=== PATIENT | male | born 1955 | race Caucasian/White ===

== ENCOUNTER 2024-04-14 16:52 | Emergency (ER) | payer BC, SELFPAY ==
[2024-04-14 16:59] VITALS: BP 165/85
[2024-04-14 17:14] LABS: % Basophils 0.5 % (0-2); % Eosinophils 1.9 % (0-6); % Immature Granulocytes 0.4 % (0-0.5); % Lymphocytes 28.3 % (20.5-51.1); % Monocytes 7.6 % (1.7-9.3); % Neutrophils 61.3 % (42.2-75.2); Absolute Eosinophils 0.1 10^3/uL (0-0.7); Absolute Lymphocytes 1.6 10^3/uL (1.2-3.4); Absolute Monocytes 0.4 10^3/uL (0.1-0.6); Absolute Neutrophils 3.5 10^3/uL (1.4-6.5); Hematocrit 38.5 % (39.0-52.0); Mean Corp Hgb Conc. 36.4 g/dL (33.0-37.0); Mean Corpuscular Hgb 30.4 pg (27.0-31.0); Mean Corpuscular Volume 83.7 fL (80.0-94.0); Mean Platelet Volume 9.8 fL (7.4-10.4); Nucleated Red Blood Cells % 0 % (-); Platelet Count 235 10^3/uL (130-400); White Blood Cell Count 5.7 10^3/uL (4.8-10.8)
[2024-04-14 17:29] LABS: ALT (SGPT) 36 U/L (0-50); AST (SGOT) 30 U/L (17-59); Albumin 4.5 g/dl (3.5-5.0); Alkaline Phosphatase 174 U/L (38-126); Blood Urea Nitrogen 18 mg/dl (9-20); Calcium 9.1 mg/dl (8.4-10.2); Carbon Dioxide 24 mmol/L (22-30); Chloride 99 mmol/L (98-107); Glucose 414 mg/dl (70-99); Potassium 4.1 mmol/L (3.5-5.1); Sodium 136 mmol/L (135-145); Total Bilirubin 0.8 mg/dl (0.2-1.3); Total Protein 7.4 g/dl (6.3-8.2); eGFR > 60.00
[2024-04-14 17:41] LABS: Troponin I < 0.012 ng/ml
--- NOTE | 2024-04-14 19:18 | ED.GENMED ---
History of Present Illness
General
Chief Complaint: Chest Pain
Source: patient
Exam Limitations: none
Time Seen by Provider: 04/14/24 19:17
Nursing documentation reviewed up to this point in time: agreed with
History of Present Illness
History of Present Illness:
68-year-old male with history of HLD, NIDDM, BPH presents for two episodes fleeting sharp right upper chest pain one at 7 a.m. and one at 10 a.m. Then felt pins and needles feeling in right palm and forearm for about 2 hours, that has subsided.
Was overnight at a wedding past 2 days, lots of eating 'junk food.' Drove about an hour home today, slept on couch, woke at 4:30 and had another 1-2 seconds of sharp right upper chest dyson. No SOB, sweating, n/v or weakness/lightheadedness.
Past History
Past History
ED Past Medical History: Hypercholesterolemia and NIDDM
Social History
Tobacco: Non-smoker
Living: with family
Employment: Employed
Review of Systems
Review of Systems
Allergies reviewed?: Yes
All Other Systems: ROS reviewed and negative except as documented in HPI and ROS
Constitutional: Denies fever
Respiratory: Denies trouble breathing
Cardiac: Reports chest pain; Denies diaphoresis, palpitations or syncope
ABD/GI: Denies abdominal pain, nausea, vomiting, diarrhea, constipated or anorexia
: Denies dysuria, frequency or difficulty voiding
Musculoskeletal: Reports no symptoms
Skin: Reports no symptoms
Neurological: Reports other (episode pins and needles feeling right palm and forearm earlier today, has resolved)
Endocrine: Denies polyuria or polydipsia
Phy Exam
Physical Exam
Physical Exam:
GENERAL: No acute distress. A&Ox3.
CONSTITUTIONAL: Afebrile.
EYES: clear, conjunctivae normal
ENMT: moist mucus membranes, Pharynx nl
RESPIRATORY: Regular respirations, nonlabored, lungs clear.
CARDIOVASCULAR: Regular rate and rhythm, no murmurs, no rubs.
GI: Soft, nontender, normal BS
MUSCULOSKELETAL: Moves with ease. Well perfused.
SKIN: Warm, dry, pink
PSYCH: Normal mood and affect. Well kept, interactive and appropriate
NEUROLOGIC: Awake, alert and oriented. No focal neurological deficits
Scores
Heart Score for Chest Pain Patients
STEMI patient?: Not applicable
Course
Orders/Labs/Results
Orders:
Orders
04/14/24 16:53
EKG [Electrocardiogram (*1)] Urgent
Reason for Study: Chest Pain
EKG- Treatment ONCE
04/14/24 17:06
CMP [Comprehensive Metabolic Panel] Urgent
Complete Blood Count/With Diff Urgent
Troponin I Urgent
04/14/24 19:32
CR Chest - 2 Views Urgent
Comment:
Reason For Exam: CP
04/14/24 19:36
METFORMIN HCl [Glucophage] 500 mg PO NOW STA
Abnormal Lab Results
04/14/24
17:06
RBC 4.60 L 10^6/uL
(4.70-6.10)
Hct 38.5 L %
(39.0-52.0)
Glucose 414 H mg/dl
(70-99)
Alkaline Phosphatase 174 H U/L
(38-126)
04/14/24 17:06
04/14/24 17:06
Vital Signs
Initial and Last Documented VS:
Initial Vital Signs
Temp Pulse Resp BP Pulse Ox
98 F 80 18 165/85 99
04/14/24 16:59 04/14/24 16:59 04/14/24 16:59 04/14/24 16:59 04/14/24 16:59
Last Documented Vital Signs
Temp Pulse Resp BP Pulse Ox
98 F 76 22 165/85 96
04/14/24 16:59 04/14/24 18:15 04/14/24 18:15 04/14/24 16:59 04/14/24 18:15
MDM/Problems Addressed
Differential Diagnosis Includes:
Type 2 diabetes
ACS, chest wall pain
MDM/Problems Addressed:
68-year-old male with history of HLD, NIDDM, BPH presents for two episodes fleeting sharp right upper chest pain one at 7 a.m. and one at 10 a.m. Then felt pins and needles feeling in right palm and forearm for about 2 hours, that has subsided.
Was overnight at a wedding past 2 days, lots of eating 'junk food.' Drove about an hour home today, slept on couch, woke at 4:30 and had another 1-2 seconds of sharp right upper chest dyson. No SOB, sweating, n/v or weakness/lightheadedness.
Middle aged male w h/o NIDDM was on Metformin 'years ago' asymptomatic, non gap hyperglycemia with BS 414.
No infectious processes, no recent steroids
Plan: restart Metformin and f/u with PCP
Cardiac workup is neg
CXR: NAD
Stable for discharge
Rx for Metformin sent to his pharmacy
*EKG
EKG Intrepretation Date: 04/14/24
Interpretation: normal
Heart Rate: 78
Rate: normal
Rhythm: sinus
[place]: normal axis
Interval: normal interval
QRS Pattern: normal QRS
Ischemia: no ischemia
*Critical Care Note
Total Time (30-74mins, 75-104mins- exclusive of procedures): Not Applicable
ED Attending Note
-
Portions of this chart may have been created with voice recognition software.� Occasional wrong word or��sound alike� substitutions may have occurred due to the inherent limitations of voice recognition software.
Discharge Plan
Departure
Patient Disposition: Home (Routine Discharge)
Date of Disposition: 04/14/24
Time of Disposition: 20:11
Patient with high blood pressure during this ER visit?: Yes
Condition: Good
Discharge Problem:
Type 2 diabetes mellitus, Atypical chest pain
Instructions: Type 2 diabetes, Diabetes and diet, Chest Pain CBC Follow Up
Prescriptions:
New
metformin 500 mg tablet
500 mg PO BID Qty: 60 0RF
No Action
epinephrine [EpiPen] 0.3 MG/0.3/SYRINGE auto-injector
0.3 mg IM PRN PRN (Reason: allergic reaction) Qty: 2 0RF
methylprednisolone [Medrol (Sanju)] 4 MG tablets,dose pack
4 tab PO . DIRECT Qty: 1 0RF
cephalexin 500 MG capsule
500 mg PO QID Qty: 28 0RF
Referrals:
Panda Arguelles MD [Family Provider] - Call in 1-3 days for appt
Activity Restrictions/Additional Instructions:
As we discussed, your cardiac workup shows nothing worrisome.
Someone from the cardiac group will call you early next week for a more thorough cardiac evaluation
Your blood sugar is 414. You need to restart your Metformin
I sent a prescription to your pharmacy for Metformin 500 mg twice daily
Make appointment with your primary doctor in 1-2 weeks to discuss you diabetes and inform you started Metformin, and to have your blood sugar re checked.
Interventions
Interventions:
*Risk Screen - Suicide Last Done: 04/14/24 16:59
*General Assessment Last Done: 04/14/24 16:59
*Neglect/Abuse Screening Last Done: 04/14/24 16:59
ED- Fall Risk Assessment Last Done: 04/14/24 20:41
*Nursing Disposition Last Done: 04/14/24 20:41
ED- Cardiac Assessment Last Done: 04/14/24 19:27
Discharge Date and Time
Discharge Date/Time: 04/14/24 20:41
Print Language: UKRAINIAN
[2024-04-14] MEDS: GLUCOPHAGE 500 MG PO (20:02)
== END 2024-04-14 20:41 | disposition home or self-care (01) ==
LOC: EMR 16:52
PROVIDERS: EMERGENCY PHYSICIAN Emergency Medicine; FAMILY PHYSICIAN Family Medicine
DX: R07.89 Other chest pain (principal); E11.65 Type 2 diabetes mellitus with hyperglycemia; R20.2 Paresthesia of skin; E78.00 Pure hypercholesterolemia, unspecified; N40.0 Benign prostatic hyperplasia without lower urinary tract symptoms; Z79.84 Long term (current) use of oral hypoglycemic drugs
CPT/HCPCS: 99283; 71046; 80053; 84484; 85025; 93005

== ENCOUNTER 2024-08-30 08:33 | Inpatient (IN) | payer BC, MEDICARE, SELFPAY ==
[2024-08-30] VITALS (82 sets, daily range): BP systolic 102–160; BP diastolic 48–100; BMI 29.6; BMI 30.6
--- NOTE | 2024-08-30 07:18 | ED.GENMED ---
History of Present Illness
General
Chief Complaint: Fainting Sensation
Source: patient
Exam Limitations: none
Time Seen by Provider: 08/30/24 07:15
History of Present Illness
History of Present Illness:
See MDM
Past History
Past History
ED Past Medical History: Hypercholesterolemia and NIDDM
Social History
Tobacco: Non-smoker
Living: with family
Employment: Employed
Phy Exam
Physical Exam
Physical Exam:
See MDM
Scores
NIH Stroke Score
Level of Consciousness: 0 - Alert
LOC Questions: 0-Answers both correctly
LOC Commands: 0-Performs both correctly
Best Horizontal Gaze: 2-Total gaze palsy
Visual Mota: 0=Normal, no visual loss
Facial Palsy: 0=Normal, symmetrical
Motor - Right Arm: 0=No drift 10 seconds
Motor - Left Arm: 0=No drift 10 seconds
Motor - Right Le-No drift 5 seconds
Motor - Left Le-No drift 5 seconds
Limb Ataxia: 0-Absent
Sensation: 0-Normal
Best Language: 0-No aphasia
Dysarthria: 0-Normal
Extinction and Inattention: 0-No abnormality
Total Score:: 2
Course
Orders/Labs/Results
Orders:
Orders
08/30/24 07:15
Electrocardiogram (*1) Stat
Reason for Study: Other
Other Reason for Exam: neuro symptoms
CT HEAD STROKE ALERT W/o Cont Urgent
Comment:
Reason For Exam: dizzy, unable to move R eye medially
CT HEAD/NECK ANG STROKE ALERT Urgent
Comment:
Reason For Exam: dizzy, unable to move R eye medially
Cardiac Monitoring- Treatment ONCE
EKG- Treatment ONCE
08/30/24 07:44
Complete Blood Count/With Diff Urgent
Comprehensive Metabolic Panel Urgent
PTT Urgent
Prothrombin Time Urgent
Troponin I Urgent
08/30/24 07:46
Tenecteplase [Tnkase] 25 mg Syringe [Syringe Non-Pump] 0 ml IV NOW
Provider explained risk/benefits to patient &/or caregiver?: Yes
Blood pressure: 129/73
08/30/24 07:55
Consult Neurology [NEUROLOGY CONSULT] Stat
Consulting Provider: Richard Patel
Was physician already notified: Yes
08/30/24 08:02
Electrocardiogram (*1) Routine
Reason for Study: TIA/Stroke
Code Status As Directed
Resuscitation Status: Full Code
Case Management Consult Once
Case Management Consult: Discharge Planning
DIETARY CONSULT Routine
Reason for Consult: stroke/TIA
Steam Shovel Operating Engineer Consult Routine
Consulting Provider: Terrell Root
Was physician already notified: Yes
Reason for consult: cva
Head Of Integrated Media Urgent
MR Brain Without Contrast Routine
Comment: complete 24 hrs post tenecteplase admin &/or IAT
Reason For Exam: poss stroke, status post tenecteplase &/or IAT,
Recent pill cam endoscopy?: No
Acetaminophen [Tylenol] 650 mg PO Q4HPRN PRN
Hemetest Stools As Directed
Comment: hemoccult all stools if patient received tenecteplase
NIH Stroke Scale As Directed
Directions: Other
Comment: For Tenecteplase: NIH stroke Scale to be completed prior to administration, then every 1 hour for
2 hours, then every shift and with change in condition and/or mental status.
For IAT: NIH stroke scale to be completed at hand off, every 1 hour for 2 hours on arrival to ICU;
then every shift and with change in condition and/or mental status.
Neurological Checks As Directed
Frequency: Per unit guidelines
Additional Instructions:: after start of thrombolytic therapy and/or IAT:
q15min x 2 hrs, q30min x 6 hrs, q1h x 16 hrs, q4h x 24 hrs, then every shift and
with any changes.
Notify MD As Directed
Notify physician if: - Any deterioration, change in neurological status, development of severe headache,
nausea and vomiting, or with any signs of bleeding. (see guidelines for suspected
intracerebral hemorrhage).
- If intracranial hemorrhage is suspected or confirmed by imaging, anticipate need for
osmotic diuretic to maintain euvolemia.
Notify MD As Directed
Notify physician if: Glucose less than 70 or greater than 180.
Anticipate corrective insulin orders.
Notify MD As Directed
Notify physician if: unable to obtain MRI of head within 22-32 hours of tenecteplase administration and/or IAT
- contact Neurology for order for CT of head without contrast
Patient Education As Directed
Type: Stroke education packet
Comment: provide to patient and family
Pneumatic Compression Sleeves As Directed
Type: Knee high
Precautions As Directed
Type of Precautions: Bleeding
Comment: post Bleeding Precaution sign at bedside (if patient received tenecteplase)
Swallow Screening CVA/TIA ONLY As Directed
Comment: NPO until swallow screening completed
If patient FAILS swallow screening:: NPO and Speech consult and aspiration precautions
If patient PASSES swallow screening, diet:: Cholesterol Lowering
Thrombolytic Precautions As Directed
Thrombolytic Precautions:: [place] bleeding precautions. Minimize invasive procedures and venipunctures,
avoid IM injections and over-handling patient, and check all puncture sites for
bleeding. Assess the patient and notify provider for signs and symptoms of
internal or serious bleeding, such as changes in vital signs or evidence of blood
in the urine or stool.
Additional instructions: Hemocult all stools.
Apply direct pressure or pressure dressing to any compressible puncture sites.
No ABG sampling or Pena insertion after Tenecteplase administration for 24 hours,
unless directed by the Neurologist/Attending.
Vital Signs As Directed
Frequency: q15m
Call for:: BP greater than 180/105 mmHg or less than 100/60 mmHg
Additional Instructions:: after start of thrombolytic therapy and/or IAT:
q15min x 2 hrs, q30min x 6 hrs, q1h x 16 hrs, q4h x 24 hrs, then every shift and
with any changes.
CR Chest - 2 Views Urgent
Comment:
Reason For Exam: stroke/TIA
Ot Eval And Treat Routine
Pt Eval And Treat Routine
Activity Level: Encourage Progressive Amb
Speech Therapy Eval & Treat Routine
08/30/24 08:03
DX Deep Vein Thrombosis Video Routine
08/30/24 08:05
Admit/Transfer Patient As Directed
Co-Sign Provider:
Level of Care: Inpatient admission
Assign to:: ICU
Physician / Group: Hospitalist
Diagnosis: CVA
Reason for Hospitalization: CVA
Expected length of stay greater than two midnights?: Yes
ELOS- Estimated Length of Stay in days: 2
I certify the patient meets the requirements for IP care: Yes
08/30/24 08:06
PRN Pain Medication Management As Directed
May give lesser potent ordered pain med per pt: Yes
preference::
Protocol:: Medication orders for pain may be administered in a
manner that supports deferring to patient preference
when the pt is:
- Requesting an ordered lesser potent pain medication.
Least to most potent pain medications are defined
as: acetaminophen < NSAID < tramadol < opioids
(morphine, oxycodone, hydromorphone).
- Requesting a lesser dose of the same medication IF
ORDERED.
- Requesting a less intrusive route of administration
if both routes are prescribed by the provider (PO <
IV).
08/31/24 06:00
Basic Metabolic Panel IN AM
Cardiovascular Evaluation IN AM
Complete Blood Count/No Diff IN AM
PTT IN AM
Prothrombin Time IN AM
Abnormal Lab Results
08/30/24 08/30/24
07:44 07:50
BUN 21 H mg/dl
(9-20)
Glucose 246 H mg/dl
(70-99)
POC Glucose 235 H mg/dl
(70-99)
08/30/24 07:44
Vital Signs
Initial and Last Documented VS:
Initial Vital Signs
Temp Pulse Resp BP Pulse Ox
97.5 F 55 22 129/73 96
08/30/24 07:06 08/30/24 07:06 08/30/24 07:06 08/30/24 07:06 08/30/24 07:06
Last Documented Vital Signs
Temp Pulse Resp BP Pulse Ox
97.5 F 61 16 135/73 96
08/30/24 07:06 08/30/24 07:56 08/30/24 07:56 08/30/24 07:56 08/30/24 07:45
MDM/Problems Addressed
Differential Diagnosis Includes:
HPI and MDM Narrative:
69-year-old male presenting with sudden onset of dizziness and double vision. Patient woke up and felt normal. Symptoms occurred suddenly about 30 minutes ago and he urgency department immediately. Patient was brought back to the treatment room
immediately and a stroke alert was called. On exam, patient does have a mild nystagmus. He has inability to move his right eye medially. He is having some trouble with [id number] bilaterally but this is likely in setting of his nystagmus. He
is closing his right eye to avoid nausea and vomiting
Will obtain CT and CT angiogram. Neurology made aware immediately
Physical exam
General: Well appearing and non-toxic
HEENT: protecting airway. Mild nystagmus bilaterally. Inability to move right eye medially
Neck: appears supple
CV: No evidence of cyanosis
Resp: No accessory muscle use
Abd: Non-distended
Extremities: No deformities
Neuro: alert. Trouble with finger-nose bilaterally
Psych: Normal affect
Skin: Intact
Problems Addressed including Acute and Chronic Conditions affecting care:
1. Dizziness
Acuity: acute
Prognosis: unstable
Details: Given the acute nature and his neurofindings, stroke alert called
Updates
7:[address] head negative. Case rediscussed with neurology who agrees with TNK. I discussed risk versus benefit with both patient and at bedside. They understand the risk of bleeding and the risk of morbidity and mortality and gave consent
for TNK
Differential Diagnosis (but not limited to): Intracranial hemorrhage, stroke, intracranial mass
Testing considered: MR
Drug therapy (if applicable): OTC meds, please see d/c instruction regarding Rx drugs
Amount and/or Complexity of Data Reviewed
Clinical info obtained from: Patient
External data reviewed: N/A
Labs I independently reviewed (but not limited to): [ ]
Radiology: The CT scan was personally and independently reviewed. In addition, official CT report reviewed.
Pulse Ox: not hypoxic
EKG independently reviewed: Sinus rhythm, normal axis, no STEMI
Budget Analyst: Sinus rhythm
Critical Care: The high probability of a clinically significant, sudden or life threatening deterioration of the neurovascular system(s) required my full and direct attention, intervention and personal management. The aggregate critical care time
was 35 minutes. This time is in addition to time spent performing reported procedures but includes the following:
[x] Data Review and interpretation
[x] Patient assessment and monitoring of vital signs
[x] Documentation
[x] Medication orders and management
Risk of Complication:
Social Determinants of health: Good social support
Discussed with other providers: Radiologist, neurologist, hospitalist
Escalation of Care includes Admit/Obs: Given the concern for stroke, patient given TNK and will admit
Occasional wrong word or 'sound a like' substitutions may have occurred due to the inherent limitations of voice recognition software. Read the chart carefully and recognize, using context, where substitutions have occurred.
*Critical Care Note
Total Time (30-74mins, 75-104mins- exclusive of procedures): 35 min
ED Attending Note
-
Portions of this chart may have been created with voice recognition software.� Occasional wrong word or��sound alike� substitutions may have occurred due to the inherent limitations of voice recognition software.
Discharge Plan
Departure
Patient Disposition: Admit
Date of Disposition: 08/30/24
Time of Disposition: 07:56
Admit to: ICU
Presentation/result/management discussed w/ accepting MD/DO: Hospitalist
Discharge Problem:
Acute CVA (cerebrovascular accident)
Prescriptions:
No Action
metformin 500 mg tablet
500 mg PO BID Qty: 60 0RF
simvastatin [Zocor] 20 mg Tablet
40 mg PO QPM
finasteride 5 mg Tablet
2.5 mg PO DAILY
Interventions
Interventions:
*Risk Screen - Suicide Last Done: 08/30/24 07:10
*General Assessment Last Done: 08/30/24 07:17
ED- Cardiac Assessment Last Done: 08/30/24 07:17
ED- Neurological Assessment Last Done: 08/30/24 07:51
Discharge Date and Time
Print Language: BOLIVIAN
[2024-08-30 07:51] LABS: Glucose - Point of Care 235 mg/dl (70-99)
[2024-08-30] MEDS: TNKASE 5 MG IV (07:54)
[2024-08-30 08:07] LABS: APTT 25.9 Sec (23.4-35.0); INR 1.04; PT 14.1 Sec (11.4-14.6)
[2024-08-30 08:09] LABS: ALT (SGPT) 29 U/L (0-50); AST (SGOT) 21 U/L (17-59); Albumin 4.2 g/dl (3.5-5.0); Alkaline Phosphatase 100 U/L (38-126); Blood Urea Nitrogen 21 mg/dl (9-20); Calcium 9.3 mg/dl (8.4-10.2); Carbon Dioxide 23 mmol/L (22-30); Chloride 102 mmol/L (98-107); Estimated Creatinine Clearance 101 ml/min; Glucose 246 mg/dl (70-99); Sodium 135 mmol/L (135-145); Total Bilirubin 0.7 mg/dl (0.2-1.3); eGFR > 60.00
[2024-08-30 08:19] LABS: Troponin I < 0.012 ng/ml
[2024-08-30 08:25] LABS: Potassium 4.1 mmol/L (3.5-5.1)
[2024-08-30 08:29] LABS: Hematocrit 39.3 % (39.0-52.0); Mean Corp Hgb Conc. 35.6 g/dL (33.0-37.0); Mean Corpuscular Hgb 31.3 pg (27.0-31.0); Mean Corpuscular Volume 87.7 fL (80.0-94.0); Mean Platelet Volume 9.5 fL (7.4-10.4); Platelet Count 264 10^3/uL (130-400); Red Blood Cell Count 4.48 10^6/uL (4.70-6.10); Red Cell Dist. Width 12.9 % (11.5-14.5); White Blood Cell Count 5.9 10^3/uL (4.8-10.8)
--- NOTE | 2024-08-30 08:34 | CON.INTV ---
Consultation
Consultation Request
Date/Time Consultation Requested: 08/30/2024 - 801
Date/Time Consultation Performed: 08/30/2024825
Requesting Provider: Dr. Gibson
Performing Provider: Dr. Root
Reason for Consultation: Suspected CVA s/p TNK
Medical History
-
Chief Complaint: Dizziness + double vision
History of Present Illness:
69-year-old male with PMHx of DM type II, BPH, right eye vascular abnormality with regularly scheduled intravitreal injections and HLD who p/w dizziness , double vision and right eye gaze. He also appeared diaphoretic and pale. His symptoms began
at 6:30 AM on 08/30/2024. He also developed nausea/vomiting with movement. In the ER he had a gaze palsy of his right eye. Stroke alert called and CT head showed no acute intracranial abnormality, and CTA head/neck showed no significant vascular
occlusion, aneurysm or dissection. Initial BP was 129/73, SpO2 96% on room air, pulse rate 55, respiratory rate 22 and he was afebrile to 97.5 �F. Initial Hb 14, platelet count 264, INR 1.04, serum sodium 135, glucose 246, and initial troponin
negative at <0.012. Due to concern for a left-sided ischemic CVA, he was given TNK on AM of 08/30/2024 at 0754. He was admitted to the ICU for further monitoring with belt operator services consulted for additional management/recommendations.
Patient was seen and evaluated this morning. Patient's , Maryann, is at bedside. All questions were answered. Per the , this morning he had complete vision loss on the right side of his vision regarding his right eye. While in the ICU, he
has been having left eye nystagmus, and his loss of vision has resolved. He denies AREVALO. He is speaking well and has no difficulty swallowing. BP 140/76, pulse rate 77 and saturating 98% on room air. He feels like whenever he is looking at
something that things are not lining up, and when he looks out just with his right eye that his vision is 'swirly,' and with just his left eye things are moving up and down.
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
PSHx: Right knee arthroscopy, left ankle surgery, thoracic surgery for penetrating chest injury
Past Medical History
Past Medical History: Other (Above as per HPI)
Past Surgical History: Other (Above as per HPI)
Social History
Tobacco: Non-smoker
Alcohol: None
Drug: None
Personal:
Living: With Family
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
Family History
Family History: Reviewed & Not Pertinent
Allergies / Home Medications
Allergies
Allergy/AdvReac Type Severity Reaction Status Date / Time
No Known Allergies Allergy Unverified 01/09/15 11:27
Home Medications
�Medication �Instructions �Recorded �Confirmed �Last Taken �Type
metformin 500 mg tablet 500 mg PO BID #60 tabs 04/14/24 08/30/24 08/29/24 Rx
finasteride 5 mg tablet 2.5 mg PO DAILY 08/30/24 08/30/24 08/29/24 History
simvastatin 20 mg tablet (Zocor) 40 mg PO QPM 08/30/24 08/30/24 08/29/24 History
Review of Systems
-
History Source: Patient
All other systems: Negative unless noted
Vitals / Labs / Diagnostic Testing
Vital Signs
Temp Pulse Resp BP Pulse Ox
97.5 F 54 16 136/82 98
08/30/24 07:06 08/30/24 09:27 08/30/24 09:27 08/30/24 09:27 08/30/24 09:27
Lab Data
08/30/24 07:44
08/30/24 07:44
Laboratory Results
08/30/24
07:44
PT 14.1
INR 1.04
APTT 25.9
Diagnostic Testing:
Physical Exam
-
HEENT: Normocephalic and Anicteric
Cardiovascular: S1/S2, Murmur (negative), Rub (negative) and Peripheral Edema (negative)
Respiratory: Clear, Wheeze (negative), Rales (negative), Rhonchi (negative) and Non-Labored Respirations
GI: Soft, Non Distended, Non Tender and Normal Bowel Sounds
Neurology: AO x 3, Tremors (negative), Other (Unable to adduct right eye with left eye nystagmus) and Other (Intact sensation to light touch across all 4 extremities + face; normal paper feeder strength and normal plantar-/dorsiflexion bilaterally; normal
smile with normal tongue protrusion and lateral movement; normal shoulder shrug; able to keep eyes closed against resistance; reduced peripheral vision of R-eye)
Skin: Warm and Dry
General: Respiratory Distress (negative), Comfortable, Fever (negative) and Chills (negative)
Assessment
-
Assessment: 69-year-old male with PMHx of DM type II, BPH, right eye vascular abnormality with regularly scheduled intravitreal injections and HLD who p/w dizziness , double vision and right eye gaze. He also appeared diaphoretic and pale. His
symptoms began at 6:30 AM on 08/30/2024. He also developed nausea/vomiting with movement. In the ER he had a gaze palsy of his right eye. Stroke alert called and CT head showed no acute intracranial abnormality, and CTA head/neck showed no
significant vascular occlusion, aneurysm or dissection. Initial BP was 129/73, SpO2 96% on room air, pulse rate 55, respiratory rate 22 and he was afebrile to 97.5 �F. Initial Hb 14, platelet count 264, INR 1.04, serum sodium 135, glucose 246, and
initial troponin negative at <0.012. Due to concern for a left-sided ischemic CVA, he was given TNK on AM of 08/30/2024 at 0754. He was admitted to the ICU for further monitoring with belt operator services consulted for additional
management/recommendations.
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
Impression:
#Suspected left-sided CVA s/p TNK (administered 08/30/2024 at 7:54 AM)
#DM type II (uncontrolled: HbA1c: 9.9 on 08/30/2024) on OAG at home now c/b hyperglycemia
#History of hyperlipidemia
#History of BPH
Plan:
- Given that the patient is having difficulty with right eye adduction and given his initial presentation with right eye vision loss, this is concerning for an acute CVA. Given right eye inability to adduct with abduction nystagmus of the left eye,
this is consistent with internuclear ophthalmoplegia; differential also includes a partial 3rd nerve palsy versus supranuclear gaze pathology
- Admit to ICU for q1hr neurochecks
- Maintain strict BP<180/105mmHg with permissive hypertension; keep MAP>65
- Diet as per DEVELOPMENT LEAD
- PT/OT
- Check MRI brain
- Hold anticoagulants/antiplatelets at least until imaging >24 hours s/p TNK shows no evidence of acute ICH
- Neuro on board - recs pending
- Maintain euglycemia with goal BG 140-180; given that his A1c is 9.9, diabetic TIMBER MANAGEMENT TECHNICIAN consulted
- Check lipid panel and start high intensity statin with goal LDL <70
- Maintain SpO2 >92-94%
- Replete electrolytes with K>4, Mg>2
- Trend H/H and transfuse if needed to keep Hb>7g/dL; keep plt>100k
- prn nebulized bronchodilators - not currently bronchospastic
- Incentive spirometer encouraged 10x per hour for at least 4 hrs a day
- Resume proscar
- DVT ppx: SCDs for now
Continue ICU level care for q1hr neurochecks for this critically ill patient.
Critical care statement: A total of 37 minutes of critical care time was provided for this patient today. This includes management of unstable vital signs, evaluation of the patient at bedside, reviewing the patient's pertinent medical records
including radiographs, microbiology, laboratory evaluations, and discussion with primary team, consultants, pharmacy, nutrition, physical therapy, case management, charge nurse, critical care nursing, and respiratory therapy.
--- NOTE | 2024-08-30 08:35 | HPS.HSE ---
Addendum entered and electronically signed by Madeline Gibson MD 08/30/24 16:14:
I personally performed a history and physical exam of the patient and discussed management with the resident. I reviewed the resident's note and agree with the documented findings and plan of care HPI/CC except for changes in my documentation
Patient was seen earlier today when the orders were placed late documentation.
69 y/o presented with double vision started around 6:30 in the morning. He also had some nausea and vomiting. In the ER he received TN K
CVS: S1-S2 normal
Chest: CTA B/L
Abdomen: Soft, NT / Bowel sounds present
Extremities: No edema, normal pulses
FLASK FITTER: Cranial nerve palsy on the right side, no pupillary asymmetry or ptosis noted
Rest of the neuroexam unremarkable
Reflexes normal
Chest x-ray hypoaerated lungs without consolidation-reviewed by me
Head and neck CTA-no vascular occlusion aneurysm or dissection
# Cranial nerve palsy- Right side.
Treated as stroke with TNK
Neurology evaluated the patient
Admitted to ICU
Post TNK protocol
Avoid antiplatelets for next 24 hours
MRI ordered for tomorrow, check MRA to rule out aneurysm
Microvascular disease secondary to diabetes also possibility
Continue statin switch to atorvastatin
Check lipid panel in the morning
Hemoglobin A1c indicates poor diabetes control
Eye patch discussed with the patient
Also that he should not be driving till cleared by ophthalmology
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
# Diabetes with a hemoglobin A1c of 9.9 indicates poor control
Accu-Cheks and sliding scale coverage
Hold metformin in the setting of contrast
Needs better diabetes control
# Hyperlipidemia-switch simvastatin to atorvastatin
# Patient states that he takes finasteride for hair growth and not for prostate disease
# DVT prophylaxis-SCDs
# Full code
Discussed in detail with patient's at bedside
Discussed with neurology
D/W RN at bed side
Total Critical Care Time 40 minutes. I was immediately available to the patient and staff. I personally examined, reviewed labs, diagnostic images/reports, interpretations, treatment plans, discussed patient care with other providers and family
,entered orders as appropriate and documented the medical record.
Original Note:
Family Physician
-
Family Physician: NOT KNOW UNKNOWN - PT DOES
Chief Complaint
-
dizziness, double vision
History of Present Illness
69yo M with H diabetes (metformin, no insulin), hyperlipidemia (simvastatin) who presents from home to ED for sudden onset dizziness and double vision. History also includes unknown right eye condition managed by regular ophthalmic eylea
injection every 6-8 weeks (most recent injection 4 weeks ago); denies any issues with injections. He awoke this morning in his usual state of health. Around 6:30 AM, dizziness and double vision began. He has had some nausea and vomiting, worse
with movement such as on the way to the hospital. He has never experienced this is past. Not on any blood thinners. In the ED, he was noted to have a gaze palsy of his right eye. His head CT was negative for stroke/hemorrhage and head/neck CTA
was negative for obstruction/dissection; no acute intracranial pathology seen on imaging. He was evaluated by neurology and received TNK.
Review of systems otherwise negative. He denies headache, syncope, confusion, chest pain/pressure, palpitations, shortness of breath, abdominal pain, weakness, pain/swelling of extremities. He tolerates regular diet at home, no
pain/difficulty/coughing with swallowing. He denies diarrhea/constipation, no black/bloody stools. At baseline he ambulates without assistance or devices.
Medical History
Past Medical History
Past Medical History: Reports Hypercholesterolemia, NIDDM and Other (BPH); Denies Arrhythmia, CAD, CVA or HTN
Additional Past Medical History:
distant history of penetrating chest injury and pneumothorax, resolved
residual L pectoral defect 2/2 above
?ophthalmic condition R eye
Past Surgical History: Reports Orthopedic (R knee arthroscopy, L ankle brostrom surgery) and Other (thoracic surgery for penetrating chest injury)
Social History
Tobacco: Non-smoker
Alcohol: None
Drug: None
Personal:
Living: With Family
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
Family History
Family History: Not pertinent
Allergies / Home Medications
Allergies reflects when Allergies were last updated in [facility].
Home Medications with original date entered in [facility]
Allergy/Medication List:
Allergies
Allergy/AdvReac Type Severity Reaction Status Date / Time
No Known Allergies Allergy Unverified 01/09/15 11:27
NKDA
History of anaphylaxis to bee stings
Home Medications
metformin 500 mg tablet 500 mg PO BID #60 tabs 04/14/24
finasteride 5 mg tablet 2.5 mg PO DAILY 08/30/24
simvastatin 20 mg tablet (Zocor) 40 mg PO QPM 08/30/24
Has not taken home medications this AM
Review of Systems
-
History Source: Patient
Constitutional: Reports No Symptoms
EENT: Reports No Symptoms
Respiratory: Reports No Symptoms; Denies Cough or Trouble Breathing
Cardiac: Reports No Symptoms; Denies Chest Pain, Diaphoresis, Palpitations or Syncope
Abdomen/GI: Reports No Symptoms; Denies Abdominal Pain, Nausea, Vomiting, Diarrhea, Constipated, Bloody Stools or Black Stools
: Reports No Symptoms; Denies Dysuria, Frequency or Difficulty Voiding
Musculoskeletal: Reports No Symptoms; Denies Joint Pain, Joint Swelling, Muscle Pain, Muscle Stiffness or Edema
Skin: Reports No Symptoms; Denies Itching or Rash
Neurological: Reports See HPI, Dizzy and Weakness; Denies Headache or Numbness
Endocrine: Reports No Symptoms
Hematologic/Lymphatic: Reports No Symptoms; Denies Bleeding or Bruising
Psych: Reports No Symptoms
Physical Exam
Vital Signs
Vital Signs
Temp Pulse Resp BP Pulse Ox
97.5 F 57 16 127/80 96
08/30/24 07:06 08/30/24 08:11 08/30/24 08:11 08/30/24 08:11 08/30/24 07:45
Physical Exam
General: Well Developed, No Apparent Distress, Comfortable (keeps eyes closed for comfort due to double vision), Conversant and Obese; No Pain or Slurred Speech
HEENT: NormoCephalic, Atraumatic, PERRLA, No Ptosis, Nose Appears Normal and Other (eyebrows/smile and facial muscles symmetric, no flattening of nasolabial fold; unable to move R eye medially past midline)
Respiratory: Clear and Non Labored Respirations; No Wheezes or Crackles
Cardiac: S1/S2 and Regular Rhythm; No Peripheral Edema or Calf Tenderness
GI: Soft, Non Tender, Non Distended (obese abdomen) and Normal Bowel Sounds
Musculoskeletal: No Edema
Skin: Warm and Dry
Neuro: Awake, Alert, AO x 3 and No Motor Deficits (muscle strength 5/5 diffusely, symmetric bilaterally); No Slurred Speech or Facial Droop
Psych: Calm and Intact Judgment/Insight
Laboratory Results
-
08/30/24 07:44
08/30/24 07:44
Laboratory Results
PT 14.1 Sec (11.4-14.6) 08/30/24 07:44
INR 1.04 08/30/24 07:44
APTT 25.9 Sec (23.4-35.0) 08/30/24 07:44
Total Bilirubin 0.7 mg/dl (0.2-1.3) 08/30/24 07:44
AST 21 U/L (17-59) 08/30/24 07:44
ALT 29 U/L (0-50) 08/30/24 07:44
Alkaline Phosphatase 100 U/L (38-126) 08/30/24 07:44
Troponin I < 0.012 ng/ml 08/30/24 07:44
Data Reviewed
-
CT Scan: Image Personally Visualized and interpreted and Report Reviewed by me
Lab Data: Labs Reviewed by me
Impression/Plan
-
69yo M with H diabetes (metformin, no insulin), hyperlipidemia (simvastatin) who presents from home to ED for sudden onset dizziness and double vision. History also includes unknown right eye condition managed by regular ophthalmic eylea
injection every 6-8 weeks (most recent injection 4 weeks ago); denies any issues with injections. He awoke this morning in his usual state of health; dizziness and double vision began around 6:30 AM, prompting him to come to ED. He has had some
nausea and vomiting, worse with movement. He has never experienced this is past. Not on any blood thinners. In the ED, he was noted to have a gaze palsy of his right eye. His head CT was negative for stroke/hemorrhage/acute intracranial
pathology and head/neck CTA was negative for obstruction/dissection. He was evaluated by neurology and received TNK for his acute stroke.
Acute stroke
S/p TNK 08/30/24
- On arrival to ED, Head CT negative for stroke/hemorrhage/intracranial pathology. Head/neck CTA negative for vascular obstruction/dissection. In ED, was treated with TNK.
- Neurology following, appreciate recommendations
- Risk factors for CVA in this patient include diabetes, hyperlipidemia. No afib/flutter on ekg in ED, no history of symptoms of this.
- Monitor BG. Check lipid panel, A1C.
- Continue monitoring in ICU, neurochecks, continuous cardiac monitoring.
- Obtain brain MRI tomorrow AM.
- Will consider ppx pending imaging results tomorrow.
- Obtain echocardiogram.
- PT/OT and speech therapy evaluation.
- Patient and Jerri updated at bedside
Hyperlipidemia
- Check lipid panel
- Given CVA, home simvastatin changed to atorvastatin on admission.
Diabetes, not on insulin
- Hold home metformin for now
- Accuchecks and ISS
BPH
Hair loss- can hold home finasteride
Code status: Full
Does not have advanced directive/living will. If needed, medical decision maker is Jerri.
VTE ppx: SCDs
Diet: NPO pending speech evaluation
Dispo planning: pending PT/OT eval
--- NOTE | 2024-08-30 08:52 | EDRN ---
0710:Received patient from Triage. at bedside. Patient stated that while he was watching TV around 0650 he developed dizziness and right eye visual changes. Patient stated he has blurred vision and when he moves his eyes his right eye
won't move inwards. Denies headache,speech difficulty,numbness/tingling and weakness. Smile is equal. Tongue is midline. ROSE x4 equally. Left eye with nystagmus. Stroke alert called. Patient taken to CT scan.
0754: Patient medicated with Tenecteplase 25 mg IV push.
0825: Patient taken to room 3357 on monitor. Report given to JOE Morton at bedside. NIHSS done at bedside. Patient continued to state that there was no change in his vision.
--- NOTE | 2024-08-30 09:00 | PTCARENOTE ---
pt admitted to ICU post TNK administration at 07:46 . original NIHSS 2 prior to intervention . He arrived to ICU at 08:26 ,he is alert and oriented , NSR on monitor with a rate of 50-60 , BP 139/83, his NIHSS at bedside 2 , he has a deficit of a
right eye palsy and right eye partial hemianopia , he tolerated bedside swallowing eval , stroke protocol followed , at bedside and updated
[2024-08-30 09:16] LABS: % Basophils 0.7 % (0-2); % Eosinophils 2.7 % (0-6); % Immature Granulocytes 0.3 % (0-0.5); % Lymphocytes 53.4 % (20.5-51.1); % Monocytes 9.8 % (1.7-9.3); % Neutrophils 33.1 % (42.2-75.2); Absolute Eosinophils 0.2 10^3/uL (0-0.7); Absolute Lymphocytes 3.2 10^3/uL (1.2-3.4); Absolute Monocytes 0.6 10^3/uL (0.1-0.6); Nucleated Red Blood Cells % 0 % (-)
--- NOTE | 2024-08-30 10:45 | PTCARENOTE ---
received patient from ED at 0826 , NIHSS done at bedside with receiving RN , NIHSS 1 . pt has a deficit with a partial hemianopia of right eye , he is also experiencing nystagmus of the left eye , he is alert and oriented , GCS is 0 , he had TNK
administered at 07:54 , stroke protocol is being followed , NSR on electronic device monitor HR 50-60 BP 139/83 , he is on room air with 02 sat of 98% , his glucose on admission 246 , he is currently on low dose insulin sliding scale
[2024-08-30 11:08] LABS: Glucose - Point of Care 240 mg/dl (70-99)
[2024-08-30] MEDS: NOVOLOG FLEXPEN-LOW RESISTANCE 2 UNITS SC (11:36)
[2024-08-30 12:30] LABS: Glycohemoglobin (HgbA1c) 9.9 % (4.0-5.6)
--- NOTE | 2024-08-30 14:27 | PTCARENOTE ---
Bubble Study completed per protocol with aseptic technique, right arm 18 G PC utilized for procedure. Pt tolerated procedure well, denies any chest pain, denies dizziness. No change in status.
--- NOTE | 2024-08-30 15:08 | CON.NEURO ---
Neuro Assessment/Plan
Assessment
right third nerve palsy, vertigo
stroke suspected vs isolated 3rd nerve palsy, sp TNK
Plan
Admit to MICU for 24 hours of frequent neurochecks.�
neurochecks q1, Frequent vital signs Q15min x 2hrs, then Q30min x 6hrs, then Q1H x 16hrs until stable from the start of TNK.�
�tele, accuchecks/ISS. Repeat Head CT in 24 hours
Blood pressure goals: <180/105 and MAP 80-100� in the acute period.� If BP elevated for 2 readings, preferred agents include IV labetalol or nicardipine.� Vasopressors as necessary to maintain MAP and CPP.�
Glucose goals: Maintain euglycemia using sliding scale insulin. If glucose >180 for two consecutive readings, please use MICU insulin protocol.�
Temperature goals: maintain normothermia�
Diagnostic tests: MRI brain without contrast, ECHO with bubble.�
Consults: PT/OT/RECEIVING TEAM MEMBER/PMR/CM/SW/manufacturing coordinator
Avoid: antiplatelets, antithrombolytics, and puncture of non-compressible sites x24 hours if possible, and avoid metformin x48 hours.�
Consultation
Order
Date of Consultation: 08/30/24
Requesting Provider: Stephan Cassidy
Reason for Consult: stroke
Subjective/Objective
Subjective Data
Date of Service: August 30, 2024
He is a 69 year old man with prior history of pre diabetes presenting with sudden onset of dizziness and horizontal binocular diplopia, on exam he was unable to move his right eye medially. with the disabiling nature of the symptoms and stroke being
possible, he was treated with TNK
Objective Data
Vital Signs
Temp Pulse Resp BP Pulse Ox
36.0 C L 63 20 138/80 98
08/30/24 11:38 08/30/24 14:56 08/30/24 14:56 08/30/24 14:56 08/30/24 14:30
Lab Results
08/30/24 07:44
08/30/24 07:44
PT 14.1 Sec (11.4-14.6) 08/30/24 07:44
INR 1.04 08/30/24 07:44
APTT 25.9 Sec (23.4-35.0) 08/30/24 07:44
Sodium 135 mmol/L (135-145) 08/30/24 07:44
Potassium 4.1 mmol/L (3.5-5.1) 08/30/24 07:44
BUN 21 mg/dl (9-20) H 08/30/24 07:44
Glucose 246 mg/dl (70-99) H 08/30/24 07:44
Calcium 9.3 mg/dl (8.4-10.2) 08/30/24 07:44
Patient Allergies
No Known Allergies Allergy (Unverified 01/09/15 11:27)
Physical Exam
-
AAOx3, speech clear, language intact
VFF, PERRLA, right CN 3 palsy - no movement medially, decreased movement vertical, no ptosis, no mydriasis, face symmetric
full strength b/l UE/LE
sensation intact
DTR normal
Medications
-
Active Medications
Generic Name Dose Route Start Last Admin
Trade Name Freq PRN Reason Stop Dose Admin
Acetaminophen 650 mg 08/30/24 08:02
Acetaminophen 325 Mg Tablet PO 09/27/24 08:01
Q4HPRN PRN
AREVALO, mild pain, or temp >100.4F
Atorvastatin Calcium 40 mg 08/30/24 18:00
Atorvastatin (Lipitor) 40 Mg Tablet PO 09/27/24 17:59
QPM ABBI
Dextrose 12.5 grams 08/30/24 08:34
Dextrose 50% (0.5 Grams/Ml) 50 Ml Syringe IV 09/27/24 08:33
[id number] PRN
hypoglycemia
Protocol
Glucagon 1 mg 08/30/24 08:34
Glucagon 1 Mg Vial IM 09/27/24 08:33
PRN PRN
hypoglycemia
Protocol
Insulin Aspart 0 units 08/30/24 11:30 08/30/24 11:36
Insulin Aspart Low Resistance 300 Units/3 Ml Pen.Injctr SC 09/27/24 11:29 2 units
AC ABBI Administration
Protocol
Sodium Chloride 0 flush 08/30/24 10:00
Sodium Chloride 0.9% (Flush) Syringe IV 09/27/24 09:59
PER PROTOCOL ABBI
Home Medications
�Medication �Instructions �Recorded
metformin 500 mg tablet 500 mg PO BID #60 tabs 04/14/24
finasteride 5 mg tablet 2.5 mg PO DAILY 08/30/24
simvastatin 20 mg tablet (Zocor) 40 mg PO QPM 08/30/24
--- NOTE | 2024-08-30 15:11 | PTOTSP ---
FERRYBOAT CAPTAIN Evaluation
Quick Aphasia Battery (Form 1 Vincentian) overall score = 9.71, within normal limits. No dysarthria observed.
Recommend:
1. Assess reading comprehension and cognitive linguistic skills when reading glasses present
--- NOTE | 2024-08-30 15:23 | PN.DE.MGMTRT ---
Insulin Management
- -
08/30/2024: Diabetes Management Consult
69 year old male who presented to the ED for further evaluation of sudden onset dizziness and double vision. PMH: HLD, T2DM, unknown right eye condition managed by regular ophthalmic Eylea injection every 6-8 weeks (most recent injection 4 weeks
ago); denies any issues with injections. In the ED, he was noted to have a gaze palsy of his right eye. His head CT was negative for stroke/hemorrhage and head/neck CTA was negative for obstruction/dissection; no acute intracranial pathology seen on
imaging. 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 No other diabetes medications, A1C 9.9%, Cr 0.8, eGFR >60
Pt awake, alert, oriented, able to discuss diabetes care plan, states he has no glucose monitor and has npt been testing his blood sugar at home.
Fasting glucose was 246(V), 235 POC and 240 pre-lunch today. Diabetes regimen includes low corrective insulin only.
Give NPH 15 units x1 now. Start Lantus 12 units @ HS and glipizide 5mg BID, 1st dose in am. Change corrective from low to moderate and change diet to 2000 lenka low cholesterol diet.
Diabetes History
- -
Type of Diabetes: 2 requiring insulin
Pre-Admission Diabetes Regimen
08/30/24
07:44
Creatinine 0.8
Lab Results
Hemoglobin A1c 9.9 % (4.0-5.6) H 08/30/24 07:44
Insulin Pump Settings
IP Diabetes Regimen
08/30/24 08/30/24 08/30/24
07:44 07:50 10:57
Glucose 246 H
POC Glucose 235 H 240 H
Meal type: Lunch
Amount consumed: 100%
Patient Education
[2024-08-30] MEDS: NOVOLIN N vial 0.15 UNITS SC (16:29)
[2024-08-30] MEDS: NOVOLOG FLEXPEN-MODERATE RESISTANCE 3 UNITS SC (16:30)
[2024-08-30 16:39] LABS: Glucose - Point of Care 233 mg/dl (70-99)
--- NOTE | 2024-08-30 16:44 | PTCARENOTE ---
A1C is 9.9 , Dr Gomez aware and consulted Diabetic UNDERCOLLAR BASTER , pt is now on moderate dose sliding scale and Lantus at HS
[2024-08-30] MEDS: LIPITOR 40 MG PO (17:33)
--- NOTE | 2024-08-30 20:00 | PTCARENOTE ---
Pt received start of shift, HR SR/ SB on telemetry. AAOx4. NIH done with RN from previous shift, NIH score 1. Hemianopsia no longer present in R vision field, partial gaze palsy in R eye and nystagmus in L eye present. Pt states diplopia is also
present. Good strength in all extremities. Pt in good spirits, open to education. Voiding in urinal. Pt updated on plan of care and verbalizes understanding.
[2024-08-30 21:51] LABS: Glucose - Point of Care 174 mg/dl (70-99)
[2024-08-30] MEDS: LANTUS 0.12 UNITS SC (21:59)
[2024-08-31] VITALS (50 sets, daily range): BP systolic 69–153; BP diastolic 49–100; PULSE 68–91
--- NOTE | 2024-08-31 00:55 | PTCARENOTE ---
No change in assessment. Diplopia, partial gaze palsy in R eye, and nystagmus in L eye still present.
[2024-08-31] MEDS: TYLENOL 650 MG PO ×2 (02:23→08:37)
--- NOTE | 2024-08-31 02:25 | PTCARENOTE ---
Pt c/o 10/27 pain in L side of mouth where he reports to have 'two abscessed teeth' which he was supposed to get removed today. PRN tylenol - see MAR
[2024-08-31 04:54] LABS: Hematocrit 37.1 % (39.0-52.0); Hemoglobin 13.2 g/dL (13.0-18.0); Mean Corp Hgb Conc. 35.6 g/dL (33.0-37.0); Mean Corpuscular Hgb 30.8 pg (27.0-31.0); Mean Corpuscular Volume 86.7 fL (80.0-94.0); Mean Platelet Volume 9.4 fL (7.4-10.4); Platelet Count 228 10^3/uL (130-400); Red Blood Cell Count 4.28 10^6/uL (4.70-6.10); Red Cell Dist. Width 13.2 % (11.5-14.5); White Blood Cell Count 6.5 10^3/uL (4.8-10.8)
[2024-08-31 05:06] LABS: INR 0.99; PT 13.6 Sec (11.4-14.6)
[2024-08-31 05:21] LABS: Blood Urea Nitrogen 20 mg/dl (9-20); Calcium 9.4 mg/dl (8.4-10.2); Carbon Dioxide 24 mmol/L (22-30); Chloride 103 mmol/L (98-107); Estimated Creatinine Clearance 114 ml/min; Glucose 174 mg/dl (70-99); HDL Cholesterol 39 mg/dl; LDL Cholesterol, Calculated 159 mg/dl; Potassium 4.2 mmol/L (3.5-5.1); Sodium 136 mmol/L (135-145); Total Cholesterol 268 mg/dl (50-199); Triglyceride 351 mg/dl (10-149); Very Low Density Lipoprotein 70 mg/dl (0-30); eGFR > 60.00
--- NOTE | 2024-08-31 07:53 | PN.DE.MGMTRT ---
Insulin Management
- -
08/31/2024: Diabetes Management follow up
69 year old male who presented to the ED for further evaluation of sudden onset dizziness and double vision. PMH: HLD, T2DM, unknown right eye condition managed by regular ophthalmic Eylea injection every 6-8 weeks (most recent injection 4 weeks
ago); denies any issues with injections. In the ED, he was noted to have a gaze palsy of his right eye. His head CT was negative for stroke/hemorrhage and head/neck CTA was negative for obstruction/dissection; no acute intracranial pathology seen on
imaging. CADDIE, pt was taking Metformin 500mg BID. No other diabetes medications, A1C 9.9%, Cr 0.8, eGFR >60.
Pt awake, alert, oriented, able to discuss diabetes care plan, noted for an episode of bradycardia requiring txt after rerun from MRI.
Nurse reports that was sitting in chair and slumped over while talking BG was 131 at the time, heart rate in the 30s, txt with Atropine
08/30 Was started on Glipizide 5mg BID and Lantus 12 units @ HS. Glucose at bedtime was 174, received Lantus. FBG 174 this AM.
Pt received 1st dose of Glipizide this AM. Will add Farxiga 10mg daily, 1st dose now. Increase Lantus to 15 units @ HS.
Cont glipizide 5mg BID, and moderate corrective AC. Will cont to follow.
Pt will be seen by the diabetes nurse educator for glucose monitor and insulin instructions today.
Will cont to follow
Diabetes History
- -
Type of Diabetes: 2 requiring insulin
Pre-Admission Diabetes Regimen
08/30/24 08/31/24
07:44 04:34
Creatinine 0.8 0.8
Lab Results
Hemoglobin A1c 9.9 % (4.0-5.6) H 08/30/24 07:44
Insulin Pump Settings
IP Diabetes Regimen
08/30/24 08/30/24 08/30/24
07:44 10:57 16:28
Glucose 246 H
POC Glucose 240 H 233 H
08/30/24 08/31/24
21:38 04:34
Glucose 174 H
POC Glucose 174 H
Meal type: Dinner
Meal type: Lunch
Amount consumed: 100%
Amount consumed: 100%
Patient Education
--- NOTE | 2024-08-31 08:00 | PTCARENOTE ---
pt awake and alert , pt NIHSS 1 , no change since 08/30 , plan for MRI at 1000
--- NOTE | 2024-08-31 08:28 | W.PN.HOSP.TC ---
Addendum entered and electronically signed by Madeline Gibson MD 08/31/24 15:09:
I personally performed a history and physical exam of the patient and discussed management with the resident. I reviewed the resident's note and agree with the documented findings and plan of care except for changes in my documentation
Patient was seen earlier today , late documentation
We were in the room when patient got back from MRI. Reviewed the MRI pictures with the patient regarding the stroke. Also reviewed about diabetes, the need for insulin. While discussing this with the patient and also Dr. Patel was in the room.
Patient slammed over and passed out for 5 to 6 seconds with his head onto the left side. He quickly came around, was escorted to bed and placed in Trendelenburg. Blood pressure was in 70s and heart rate went as low as 38. Wide-open IV fluids,
atropine were given. He was also started on Levophed.
CVS: S1-S2 normal
Chest: CTA B/L
Abdomen: Soft, NT / Bowel sounds present
Extremities: No edema, normal pulses
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
Rest of the neuroexam unremarkable
Reflexes normal
Chest x-ray hypoaerated lungs without consolidation-reviewed by me
Head and neck CTA-no vascular occlusion aneurysm or dissection
# Syncopal event-witnessed with no injury or fall
Lasted 5 to 6 seconds less than 10 seconds for sure
Possibly vasovagal
Cardiology consulted. He already had an echo done yesterday
EKG without any acute changes
Troponin ordered
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
Treated as stroke with TNK
MRI with stroke in the pontine area
Post TNK protocol
Antiplatelets to be started
Echo 08/30/2024-normal EF 60 to 65%, mild MR, trace AI, mild TR bubble study with no evidence of [id number] shunt.
Continue statin
Hemoglobin A1c indicates poor diabetes control
Eye patch discussed with the patient
Per discussion with neurology patient is okay to drive
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
# Diabetes with a hemoglobin A1c of 9.9 indicates poor control
Accu-Cheks and sliding scale coverage
Hold metformin in the setting of contrast, restart tomorrow
Lantus insulin started
At discharge , will use Lantus and metformin
Needs better diabetes control
# Hyperlipidemia-switch simvastatin to atorvastatin
# Patient states that he takes finasteride for hair growth and not for prostate disease
# DVT prophylaxis-SCDs
# Full code
Discussed in detail with patient's on the phone regarding the events updated all questions answered
Discussed with ICU team at bedside
Discussed with neurology at bedside
D/W Cards
Total Critical Care Time 45 minutes. I was immediately available to the patient and staff. I personally examined, reviewed labs, diagnostic images/reports, interpretations, treatment plans, managing unstable vital signs, discussed patient care
with other providers and family ,entered orders as appropriate and documented the medical record.
Original Note:
Today's Communication/Plan
-
MRI pending. Will consider antiplatelet/anticoagulation and/or ICU downgrade pending MRI results. Continue diabetes management per DM MATERIAL PROCESSOR.
Assessment / Plan
Assessment / Plan
69yo M with PMH diabetes (metformin, no insulin), hyperlipidemia (simvastatin) who presents from home to ED for sudden onset dizziness and double vision. History also includes unknown right eye condition managed by regular ophthalmic eylea
injection every 6-8 weeks (most recent injection 4 weeks ago); denies any issues with injections. He awoke this morning in his usual state of health; dizziness and double vision began around 6:30 AM, prompting him to come to ED. He has had some
nausea and vomiting, worse with movement. He has never experienced this is past. Not on any blood thinners. In the ED, he was noted to have a gaze palsy of his right eye. His head CT was negative for stroke/hemorrhage/acute intracranial
pathology and head/neck CTA was negative for obstruction/dissection. He was evaluated by neurology and received TNK for his acute stroke.
R Cranial Nerve Palsy
Treated as stroke, S/p TNK 08/30/24
- On arrival to ED, Head CT negative for stroke/hemorrhage/intracranial pathology. Head/neck CTA negative for vascular obstruction/dissection. In ED, was treated with TNK.
- Neurology following, appreciate recommendations
- Risk factors for CVA in this patient include diabetes, hyperlipidemia. See below for management.
- No afib/flutter on ekg in ED or telemetry, no history of symptoms of this. Continue continuous cardiac monitoring at this time.
- Echo and bubble study 08/30- no evidence of R-to-L shunt; mild MR, trace AR, mild TR; normal LV size, wall thickness, systolic function, EF 60-65%
- Obtain brain MRI this AM. Pending results, will consider downgrading level of care from ICU if appropriate.
- Hold antiplatelet/anticoagulation at this time. Will begin after review of brain MRI if appropriate.
- S/p speech evaluation, cleared for diet. Tolerating oral diet.
- PT/OT evaluation.
- Can use eye patch for comfort.
- Reviewed no driving until cleared by ophthalmology, patient understanding.
Hyperlipidemia
Hypercholesterolemia
- Triglycerides 351, cholesterol 268
- Given CVA, home simvastatin changed to atorvastatin on admission. Continue atorvastatin daily.
Diabetes, not on insulin
- Hold home metformin for now. Restart tomorrow.
- A1C 9.9 indicates poor control prior to admission.
- BS remain elevated. Continue monitoring accuchecks.
- Diabetes MATERIAL PROCESSOR following, appreciate recs.
- Continue glipizide and insulin per DM MATERIAL PROCESSOR.
- Discussed with patient at bedside
BPH- Patient reports takes finasteride for 'hair loss.' Continue home finasteride.
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 Reportedly managed by regular ophthalmic eylea injections every 6-8 weeks (most recently 4 weeks ago)
Code status: Full
Does not have advanced directive/living will. If needed, medical decision maker is Jerri.
VTE ppx: SCDs
Diet: diabetic, cholesterol lowering
Dispo planning: pending PT/OT eval
Anticipated Discharge: 24 - 48 hours
Subjective/Interval History
-
Date of Service: August 31, 2024
No acute events overnight. Continues to report double vision, and dizziness. Both are relieved by keeping right eye closed. He reports improved visual acuity in left eye, which is no longer 'jittery.' Otherwise feels well, no complaints. Denies
headache, chest pain, shortness of breath, palpitations, abdominal pain, diarrhea, constipation, pain/swelling of extremities. He is tolerating oral diet. He has not been out of bed yet. Voiding spontaneously. Last bowel movement 2 days ago.
Objective Data
-
Labs:
Laboratory Results
08/31/24
04:34
WBC 6.5
Hgb 13.2
Hct 37.1 L
Plt Count 228
PT 13.6
INR 0.99
APTT 29.0
Sodium 136
Potassium 4.2
Chloride 103
Carbon Dioxide 24
BUN 20
Creatinine 0.8
Glucose 174 H
Calcium 9.4
Vital Signs:
Vital Signs
Temp Pulse Resp BP Pulse Ox
98.1 F 62 20 149/80 96
08/31/24 03:19 08/31/24 07:00 08/31/24 07:00 08/31/24 07:00 08/31/24 06:15
I&O
08/30/24 08/31/24 09/01/24
06:59 06:59 06:59
Intake Total 730 / 730
Output Total 1000 / 1000
Balance -270 / -270
Review of Systems
-
History Source: Patient
All other systems: Reviewed and negative
Physical Exam
-
General: Well Developed, No Apparent Distress, Comfortable, Conversant and Obese; Negative Pain, Sweats or Slurred Speech
HEENT: Normocephalic, Atraumatic, No Ptosis, PERRLA and Other (unable to abduct R eye past midline; no L nystagmus; otherwise symmetric facial motor function)
Respiratory: Clear to Auscultation and Non Labored Respirations; Negative Wheezes or Crackles
Cardiac: Regular Rhythm and S1/S2
GI: Soft, Nontender, Nondistended (obese abdomen) and Normal Bowel Sounds
Genito-urinary: Clear Urine (via urinal at bedside)
Musculoskeletal: No Edema
Skin: Warm and Dry
Neuro: Awake, Alert, Oriented, AO x 3, No Motor Deficits (muscle strength diffusely 5/5, symmetric bilaterally) and No Sensory Deficits; Negative Slurred Speech or Facial Droop
Psych: Calm and Intact Judgement/Insight
Data Reviewed
-
Diagnostic Radiology: Image personally visualized and interpreted and Report Reviewed by me
CT Scan: Image personally visualized and interpreted and Report Reviewed by me
Medical Tests (Nuc Med, Echo etc): Report Reviewed by me
Labs: Labs Reviewed by me, Discussed with Nurse and Discussed with Patient
[2024-08-31 08:37] LABS: Glucose - Point of Care 185 mg/dl (70-99)
[2024-08-31] MEDS: GLUCOTROL 5 MG PO ×2 (08:37→17:09)
[2024-08-31] MEDS: PROSCAR 2.5 MG PO (08:38)
[2024-08-31] MEDS: NOVOLOG FLEXPEN-MODERATE RESISTANCE 1 UNITS SC ×2 (08:40→17:17)
--- NOTE | 2024-08-31 09:26 | W.PN.INTV ---
Today's Communication / Plan
Recommendations
Neurochecks per neurology
NIH stroke scale per shift
Up out of chair as tolerated
Follow-up MRI brain
Defer starting antiplatelet medication to neurology
Diabetic diet
adult educator consulted
Goal BG 140�180
Continue ICU level care until MRI brain is performed. If no concerning findings then will downgrade out of ICU to telemetry if okay with neurology.
Assessment
-
Assessment: 69-year-old male with PMHx of DM type II, BPH, right eye vascular abnormality with regularly scheduled intravitreal injections and HLD who p/w dizziness , double vision and right eye gaze. He also appeared diaphoretic and pale. His
symptoms began at 6:30 AM on 08/30/2024. He also developed nausea/vomiting with movement. In the ER he had a gaze palsy of his right eye. Stroke alert called and CT head showed no acute intracranial abnormality, and CTA head/neck showed no
significant vascular occlusion, aneurysm or dissection. Initial BP was 129/73, SpO2 96% on room air, pulse rate 55, respiratory rate 22 and he was afebrile to 97.5 �F. Initial Hb 14, platelet count 264, INR 1.04, serum sodium 135, glucose 246, and
initial troponin negative at <0.012. Due to concern for a left-sided ischemic CVA, he was given TNK on AM of 08/30/2024 at 0754. He was admitted to the ICU for further monitoring with assistant housekeeping manager services consulted for additional
management/recommendations.
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
Impression:
#Suspected left-sided CVA s/p TNK (administered 08/30/2024 at 7:54 AM)
#DM type II (uncontrolled: HbA1c: 9.9 on 08/30/2024) on OAG at home now c/b hyperglycemia
#History of hyperlipidemia
#History of BPH
Plan:
- Given that the patient is having difficulty with right eye adduction and given his initial presentation with right eye vision loss, this is concerning for an acute CVA. Given right eye inability to adduct with abduction nystagmus of the left eye,
this is consistent with internuclear ophthalmoplegia; differential also includes a partial 3rd nerve palsy vs supranuclear gaze pathology
- Admit to ICU for q1hr neurochecks
- Maintain strict BP<180/105mmHg with permissive hypertension until after 24 hrs s/p TNK; keep MAP>65
- Diet as per ASBESTOS WIRE FINISHER
- PT/OT
- Check MRI brain --> pending today
- Hold anticoagulants/antiplatelets at least until imaging >24 hours s/p TNK shows no evidence of acute ICH
- Neuro on board - recs pending
- Maintain euglycemia with goal BG 140-180; given that his A1c is 9.9, diabetic ROVER TENDER consulted
- Continue high intensity statin with goal LDL <70
- Maintain SpO2 >92-94%
- Replete electrolytes with K>4, Mg>2
- Trend H/H and transfuse if needed to keep Hb>7g/dL; keep plt>100k
- prn nebulized bronchodilators - not currently bronchospastic
- Incentive spirometer encouraged 10x per hour for at least 4 hrs a day
- Continue proscar
- DVT ppx: SCDs for now
Continue ICU level care however if MRI brain shows no intracranial hemorrhage and no large ischemic stroke, patient can be downgraded to telemetry if okay with neurology. Continue ICU level care for now.
Critical care statement: A total of 41 minutes of critical care time was provided for this patient today. This includes management of unstable vital signs, evaluation of the patient at bedside, reviewing the patient's pertinent medical records
including radiographs, microbiology, laboratory evaluations, and discussion with primary team, consultants, pharmacy, nutrition, physical therapy, case management, charge nurse, critical care nursing, and respiratory therapy.
Subjective Dataa
Subjective Data
Date of Service:
Date of Service: August 31, 2024
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
Subjective:
Patient was seen and evaluated this AM. Sitting in chair no acute distress. Heart rate 63, BP 123/87 and denies shortness of breath or chest pain. Wearing an eye patch on the right eye. Nystagmus and left eye improved today.
Review of Systems
General: Other (Negative unless mentioned above)
Objective Data
Data Reviewed
Vital Signs / I&O / Oxygen:
Vital Signs
Temp Pulse Resp BP Pulse Ox
98.1 F 68 17 143/87 96
08/31/24 03:19 08/31/24 08:00 08/31/24 08:00 08/31/24 08:00 08/31/24 06:15
Intake and Output
08/30/24 08/31/24 09/01/24
06:59 06:59 06:59
Intake Total 730 / 730
Output Total 1000 / 1000
Balance -270 / -270
SaO2 96
Physical Exam
General: Respiratory Distress (n), Comfortable, Chills (n) and Sweats (n)
HEENT: Normocephalic and Anicteric
Cardiovascular: S1-S2 and Peripheral Edema (n)
Respiratory: Wheeze (n), Crackles (n), Rhonchi (n) and Non-Labored Respirations
GI: Soft, Non Distended and Non Tender
Neurology: AO x 3, No Motor Deficits, Tremors (n), Other (Unable to adduct right eye with left eye nystagmus) and Other (Intact sensation to light touch across all 4 extremities + face; normal relay shop tester strength and normal plantar-/dorsiflexion
bilaterally; normal smile with normal tongue protrusion and lateral movement; normal shoulder shrug; able to keep eyes closed against resistance; reduced peripheral vision of R-eye)
Skin: Warm and Dry
Labs/Micro/Reports
Lab Data
03/14/25 04:34
08/31/24 04:34
Laboratory Results
08/31/24
04:34
PT 13.6
INR 0.99
APTT 29.0
[2024-08-31] MEDS: FARXIGA 10 MG PO (09:30)
[2024-08-31] MEDS: NSS 500 IV (11:00)
[2024-08-31] MEDS: ATROPINE 0.1 MG/ML SYRINGE 1 MG IV (11:03)
[2024-08-31 11:06] LABS: Glucose - Point of Care 131 mg/dl (70-99)
[2024-08-31] MEDS: LEVOPHED 250 IV (11:10)
--- NOTE | 2024-08-31 11:13 | W.PN.UPDATE ---
Update Note
Progress Note Update
Called urgently to patient who was sitting in chair and slumped over while talking to the hospitalist team. Immediately went to see the patient who was starting to awaken and felt clammy without chest pain or shortness of breath. He was then
brought over to the bed. BG was 131. Hooked up to the pvc monitor showing heart rate in the 30s. Given atropine 1 mg with rise in heart rate to the mid-60�70s. BP low with SBP in the 70s. Levophed started as well as 500 cc bolus of NS 0.9%.
Cardiology consulted urgently. Given this event, continue to monitor in the ICU.
--- NOTE | 2024-08-31 11:14 | W.PN.UPDATE ---
Update Note
Progress Note Update
At bedside with Dr. Gibson for rounding. Patient just returned from MRI, and was sitting comfortably in wheelchair in room. No acute distress, no complaints. Dr. Patel also at bedside to review MRI findings-- confirmed stroke. As we were discussing
his diabetes management and needing PT/OT evaluation, patient slumped to left side and became unresponsive for 5-10 seconds. Did not fall or hit head. Pulses intact though weak. Nursing and Dr. Root and nursing as well. Patient safely
transferred to bed.
POC BS 131. Hypotension, bradycardia with HR40s noted. Positioned in slight Trendelenburg.
EKG with sinus bradycardia. Atropine administered, levophed drip started at 2mcg with improvement in VS. IV NS 500mL bolus open wide. Patient remained awake, alert, calm throughout. Reported feeling clammy prior to syncope.
AP: Syncope, secondary to bradycardia/arrhythmia vs ACS vs vasovagal vs orthostatics
Will check stat BMP, mag, phos, troponins, tsh
Cardiology consulted via TT
Continue ICU level monitoring
--- NOTE | 2024-08-31 11:15 | W.PN.NEURO.1 ---
Today's Communication / Plan
-
ok to downgrade/discharge home when stable from cardiac perspective
start aspirin 81 today
can go home on asa 81 and zocor 40
Neuro Assessment/Plan
Assessment
right third nerve palsy, vertigo
lacunar stroke right toro - not clear how that accounts for the patient's 3rd nerve palsy
s/p TNK
MRI brain imgs rev'd normal
CTA head/neck
Plan
ok to downgrade/discharge home when stable from cardiac perspective
start aspirin 81 today
can go home on asa 81 and zocor 40
Subjective/Objective
Subjective Data
Date of Service: August 31, 2024
I reviewed the brain MRI imaging with patient and hospitalist team showing tiny right toro stroke next to the 4th ventricle seen on 2 images
we were discussing next steps, including downgrading the patient when he lost consciousness for several seconds. woke up spontaneously, transferred from wheelchair to bed, found to be bradycardic/hypotensive which was managed by
Objective Data
Vital Signs
Temp Pulse Resp BP Pulse Ox
36.7 C 60 22 143/87 94
08/31/24 03:19 08/31/24 09:30 08/31/24 09:30 08/31/24 09:00 08/31/24 09:30
Lab Results
08/31/24 04:34
PT 13.6 Sec (11.4-14.6) 08/31/24 04:34
INR 0.99 08/31/24 04:34
APTT 29.0 Sec (23.4-35.0) 08/31/24 04:34
Sodium 136 mmol/L (135-145) 08/31/24 04:34
Potassium 4.2 mmol/L (3.5-5.1) 08/31/24 04:34
BUN 20 mg/dl (9-20) 08/31/24 04:34
Glucose 174 mg/dl (70-99) H 08/31/24 04:34
Calcium 9.4 mg/dl (8.4-10.2) 08/31/24 04:34
LDL Cholesterol, Calc 159 mg/dl 08/31/24 04:34
Patient Allergies
No Known Allergies Allergy (Unverified 01/09/15 11:27)
Physical Exam
-
AAOx3, speech clear, language intact
VFF, PERRLA, right CN 3 palsy - no movement medially, decreased movement vertical, no ptosis, no mydriasis, face symmetric
full strength b/l UE/LE
sensation intact
DTR normal
[2024-08-31 11:40] LABS: Blood Urea Nitrogen 19 mg/dl (9-20); Calcium 9.3 mg/dl (8.4-10.2); Carbon Dioxide 26 mmol/L (22-30); Chloride 103 mmol/L (98-107); Estimated Creatinine Clearance 90 ml/min; Glucose 146 mg/dl (70-99); Magnesium 2.1 mg/dl (1.6-2.3); Sodium 137 mmol/L (135-145); eGFR > 60.00
[2024-08-31] MEDS: NOVOLOG FLEXPEN-MODERATE RESISTANCE SC (11:40)
[2024-08-31 11:51] LABS: Troponin I < 0.012 ng/ml
--- NOTE | 2024-08-31 12:00 | PTCARENOTE ---
pt returned from MRI at 11:00 he was speaking to the hospitalist and he became diaphoretic and slumped over in the chair , his heart rate dropped to the 30s and his systolic blood pressure down to 74/49 , he was given a 500 ml bolus of NSS , 1mg of
Atropine , his heart rate came up to 80s and BP up to 120s , he was also placed on Levophed at 2mcg for a goal map of 65
--- NOTE | 2024-08-31 12:06 | CON.CAR ---
Consultation
Consultation Request
Date/Time Consultation Requested: 08/31/2024 1100
Date/Time Consultation Performed:
Requesting Provider: Dr. Root
Performing Provider: Dr. Cole
Reason for Consultation: Syncope
Medical History
-
History of Present Illness:
69-year-old male with a history of hypercholesterolemia who presented to the hospital with double vision and was felt to have a CVA. He received lytic therapy yesterday. Still has issues with double vision and is unable to track medially with his
right eye. Today patient went for MRI he felt fine during the test returned to the room in the wheelchair. While he was in the wheelchair he was speaking with one of the physicians who was explaining that he had had a stroke on the MRI. Patient
states that shortly after receiving this information he felt a bit sweaty and clammy and then next thing he remembers he was waking up in the bed. Apparently patient had a syncopal episode while in the wheelchair. Rhythm showed sinus rhythm and
sinus bradycardia ECG with sinus bradycardia with heart rate 49 bpm. No long pauses or high degree AV block on telemetry. Patient received atropine and IV fluids. In addition was placed on Levophed at 2. Patient feels fine now systolic blood
pressure 140 while still on low-dose Levophed.
Patient denies having any cardiac history. No other history of syncope or near syncope no prior history of stroke or TIA. No complaints of chest pain or shortness of breath. Prior to the day of hospitalization he had felt fine he periodically
would use the elliptical and would feel fine with physical activity.
Review of systems otherwise unremarkable
Past Medical History
Past Medical History: Other (As noted)
Social History
Tobacco: Non-Smoker
Family History
Family History: Other (Negative premature CAD)
Allergies / Home Medications
Allergy/AdvReac Type Severity Reaction Status Date / Time
No Known Allergies Allergy Unverified 01/09/15 11:27
�Medication �Instructions �Recorded �Confirmed �Type
finasteride 5 mg tablet 2.5 mg PO DAILY Urinary Issue 08/30/24 08/30/24 History
simvastatin 20 mg tablet (Zocor) 40 mg PO QPM High Cholesterol 08/30/24 08/30/24 History
metformin 500 mg tablet 500 mg PO BID Diabetes 08/31/24 08/30/24 History
Review of Systems
-
All other systems: Negative unless noted
Physical Exam
Vital Signs
Temp Pulse Resp BP Pulse Ox
98.1 F 60 22 143/87 94
08/31/24 03:19 08/31/24 09:30 08/31/24 09:30 08/31/24 09:00 08/31/24 09:30
Lab Results
08/31/24 04:34
08/31/24 11:17
Troponin I < 0.012 ng/ml 08/31/24 11:17
Physical Exam
General: Well Developed, Well Nourished and No Apparent Distress
HEENT: Normocephalic, Anicteric and Other (Eyes right eye initially appears in midline when he is looking straight but he is unable to track medially with right eye)
Respiratory: Other (No wheezes rales or rhonchi)
Cardiac: Regular Rhythm
GI: Soft, Non Tender, Non Distended, Normal Bowel Sounds and Other
Genito-urinary: No Costovertebral Tender
Musculoskeletal: No Clubbing, No Cyanosis, Edema and No Edema
Skin: Warm, Dry and Rash (No rash)
Hematologic/Lymphatic: No Lymphadenopathy
Psych: Calm
Impression / Plan
-
.
Syncope.. No evidence that this is related to a primary arrhythmia. Patient had sinus rhythm and some sinus bradycardia may have been vagal episode. Patient currently on low-dose Levophed which makes his blood pressure a little more difficult to
assess. Will need to assess that he is not otherwise hypotensive. Also possible that he just had hypotension while sitting in chair. Patient currently asymptomatic. Recent echo with normal left ventricular function. Issues reviewed with Dr.
Dk
-Wean pressors as tolerated and monitor blood pressure
-If blood pressure stable off pressors then will check orthostatic vitals
-Otherwise monitor on telemetry
.
CVA
-Patient with tiny nonhemorrhagic acute/subacute pontine infarct on MRI
-Etiology unclear
-Echocardiogram with normal left ventricular function. Fair image quality bubble study. No evidence of PFO and [id number] shunt based on images
-May consider SAVANNA and possible Linq. Will review with primary team and neuro
.
Hypercholesterolemia. LDL 159
-High intensity statin
Diabetes. A1c 9.9 management directed by primary team
Data Reviewed
-
MRI: Report Reviewed by me
Medical Tests (Nuc Med, Echo etc): Report Reviewed by me
Labs: Labs Reviewed by me
[2024-08-31 12:11] LABS: TSH Reflex To Free T4 2.66 uIU/ml (0.47-4.68)
[2024-08-31 15:11] LABS: Glucose - Point of Care 125 mg/dl (70-99)
--- NOTE | 2024-08-31 15:38 | CM ---
CM following re: discharge planning.
Discussed in Rounds, reviewed pt's chart, met with pt and pt's spouse at bedside.
Pt is a 69 year old male, admitted with primary dx of CVA.
Pt reports he lives with spouse 2SH, 1 step to enter, has 2 supportive children. 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 Pt stated he feels he does not have any cognitive or functional limitations, just his eyes
effected.
PT and OT will evaluate the pt to determine a level of care at discharge. ST recommends skilled services. Pt stated he will prefer outpatient therapy.
PCP: Richard Burgess
Ph[facility]
D/C plan: most likely home with outpatient therapy and family support.
CM will follow with discharge plan updates as hospitalization progresses.
--- NOTE | 2024-08-31 15:49 | PTCARENOTE ---
pt no further episodes of hypotension , he is now off of his Levophed gtt , troponin is negative , at bedside , pt patient financial coordinator here and teaching patient and diabetes management
--- NOTE | 2024-08-31 17:02 | PTCARENOTE ---
I met with Jackson and his to discuss diabetes self management education. I reviewed type 2 diabetes and encouraged him to register for the outpatient DSME course. I assisted in setting up a contour Next EZ glucometer and he was able to
demonstrate a fingerstick blood glucose level. His pre-meal glucose was 136 mg/dL. Target glucose levels were reviewed and educational material was provided. I discussed continuous glucose monitoring and provided printed material for him to discuss
with his PCP. Long and rapid acting insulin was reviewed; onset/peak duration. Storage and safe administration was discussed and he was able to administer a practice injection. I encouraged him to give all injections while admitted with the RN
supervision. Hyper and hypoglycemia was discussed. Jackson verbalized understanding of low blood sugar treatment and will carry glucose with him at all times. I encouraged him to wear medical identification and provided resources.
[2024-08-31 17:07] LABS: Glucose - Point of Care 190 mg/dl (70-99)
[2024-08-31] MEDS: ASPIR LOW (ENTERIC COATED) 81 MG PO (17:09)
[2024-08-31] MEDS: LIPITOR 40 MG PO (17:09)
[2024-08-31] MEDS: LOVENOX 40 MG SC (17:10)
--- NOTE | 2024-08-31 18:41 | PTCARENOTE ---
no change in assessments pt is oob in chair with minimal assist
--- NOTE | 2024-08-31 20:00 | PTCARENOTE ---
Received pt. at 1900. Pt. currently awake, alert, and oriented. Denies pain/discomfort. Afebrile. Heart rhythm sinus. Blood pressure normotensive. Currently on room air. Lungs sound clear. PO diet is ordered, good appetite. Voiding without issue.
Skin as documented, Discussed plan of care. Vital signs stable at this time.
[2024-08-31 21:46] LABS: Glucose - Point of Care 117 mg/dl (70-99)
[2024-08-31] MEDS: LANTUS 0.15 UNITS SC (22:01)
[2024-09-01] VITALS (9 sets, daily range): BP systolic 103–156; BP diastolic 65–89; PULSE 56–68; BMI 29.7
--- NOTE | 2024-09-01 | PTCARENOTE ---
Pt. assessment unchanged. Neurological check remains the same. Vital signs stable at this time.
--- NOTE | 2024-09-01 04:00 | PTCARENOTE ---
Pt. assessment remains unchanged. Pt. appears to be sleeping comfortably. Vital signs stable at this time.
[2024-09-01 06:25] LABS: Hematocrit 38.3 % (39.0-52.0); Hemoglobin 13.3 g/dL (13.0-18.0); Mean Corp Hgb Conc. 34.7 g/dL (33.0-37.0); Mean Corpuscular Hgb 30.2 pg (27.0-31.0); Mean Platelet Volume 9.3 fL (7.4-10.4); Platelet Count 233 10^3/uL (130-400); Red Cell Dist. Width 13.1 % (11.5-14.5); White Blood Cell Count 5.9 10^3/uL (4.8-10.8)
[2024-09-01 06:41] LABS: Blood Urea Nitrogen 20 mg/dl (9-20); Calcium 9.3 mg/dl (8.4-10.2); Carbon Dioxide 20 mmol/L (22-30); Chloride 105 mmol/L (98-107); Estimated Creatinine Clearance 101 ml/min; Glucose 105 mg/dl (70-99); Magnesium 2.1 mg/dl (1.6-2.3); Potassium 4.1 mmol/L (3.5-5.1); Sodium 136 mmol/L (135-145); eGFR > 60.00
--- NOTE | 2024-09-01 07:27 | W.PN.CD ---
Today's Communication / Plan
-
Stable overnight with no evidence of significant arrhythmias
Patient now off Levophed and blood pressure appears stable
Continue to monitor on telemetry another 24 hours
Check orthostatic vital signs.
Will await today's evaluation by hospitalist and have additional discussion regarding the need for additional cardiac testing as we decide whether to proceed with SAVANNA and additional outpatient cardiac monitoring
Impression / Plan
-
.
Syncope.. No evidence that this is related to a primary arrhythmia. Patient had sinus rhythm and some sinus bradycardia may have been vagal episode. Patient was transient Levophed after the event but it was then weaned off.. Also possible that
he just had hypotension while sitting in chair. Patient currently asymptomatic. Recent echo with normal left ventricular function.
-Blood pressure remains stable off of pressors
-Check orthostatic vital signs
-Monitor on telemetry another 24 hours
.
CVA
-Patient with tiny nonhemorrhagic acute/subacute pontine infarct on MRI
-Etiology unclear
-Echocardiogram with normal left ventricular function. Fair image quality bubble study. No evidence of PFO and [id number] shunt based on images
-May consider SAVANNA and possible Linq. Will review with primary team and neuro
.
Hypercholesterolemia. LDL 159
-High intensity statin
Diabetes. A1c 9.9 management directed by primary team
Physical Exam
Vital Signs/Labs
Vital Signs
Temp Pulse Resp BP Pulse Ox
98 F 58 17 131/78 96
09/01/24 07:14 09/01/24 07:00 09/01/24 07:00 09/01/24 07:00 09/01/24 07:00
08/31/24 09/01/24 09/02/24
06:59 06:59 06:59
Actual Weight 103 kg 102.1 kg
09/01/24 06:07
09/01/24 06:07
PT 13.6 Sec (11.4-14.6) 08/31/24 04:34
INR 0.99 08/31/24 04:34
APTT 29.0 Sec (23.4-35.0) 08/31/24 04:34
Magnesium 2.1 mg/dl (1.6-2.3) 09/01/24 06:07
Triglycerides 351 mg/dl (10-149) H 08/31/24 04:34
LDL Cholesterol, Calc 159 mg/dl 08/31/24 04:34
VLDL Cholesterol, Calc 70 mg/dl (0-30) H 08/31/24 04:34
HDL Cholesterol 39 mg/dl 08/31/24 04:34
LAB Results
08/30/24 08/31/24
07:44 11:17
Troponin I < 0.012 < 0.012
Physical Exam
Constitutional: No acute distress
Cardiovascular: Rhythm & rate is regular
Respiratory: Respiratory effort normal
GI: Soft
Neuro/Psych: Alert
Data Reviewed
-
Date of Service: September 01, 2024
Medical Decision Making: Reviewed Test Results
EKG: Report Reviewed by me
Medical Tests (PFT, Pathology etc): Report Reviewed by me
Labs: Labs Reviewed by me
[2024-09-01] MEDS: NOVOLOG FLEXPEN-MODERATE RESISTANCE SC ×2 (07:54→13:27)
--- NOTE | 2024-09-01 07:55 | PTCARENOTE ---
07:00 assumed care. Patient seen in a room sitting in bed. Not in distress. SR 60 To SB 59; VSS. NIH and Neuro check no changes from previous shift. Orthostatic BP negative . Patient able to ambulate to bathroom without bee dizzy
[2024-09-01] MEDS: ASPIR LOW (ENTERIC COATED) 81 MG PO (08:02)
[2024-09-01] MEDS: PROSCAR 2.5 MG PO (08:02)
[2024-09-01] MEDS: GLUCOTROL 5 MG PO (08:02)
[2024-09-01] MEDS: FARXIGA 10 MG PO (08:02)
[2024-09-01 08:05] LABS: Glucose - Point of Care 103 mg/dl (70-99)
--- NOTE | 2024-09-01 08:14 | W.PN.INTV ---
Today's Communication / Plan
Recommendations
Neurochecks per neurology
NIH stroke scale per shift
Up out of chair as tolerated
PT/OT
Continue ASA per neuro + high intensity statin
Outpatient cardiology follow-up for SAVANNA and possibly Linq
Diabetic diet
educator senior clinical consulted --> he will need diabetic teaching prior to discharge
Goal BG 140�180
Check orthostatics today as well
Patient is stable for either downgrade to telemetry versus discharge home. Defer discharge decision to primary hospitalist in addition to recommendations from neurology + cardiology. No additional recommendations at this time.
Depot Manager/Pulmonary service will now sign off. Please reconsult if there are any additional questions/concerns, or if patient's respiratory status deteriorates.
Assessment
-
Assessment: 69-year-old male with PMHx of DM type II, BPH, right eye vascular abnormality with regularly scheduled intravitreal injections and HLD who p/w dizziness , double vision and right eye gaze. He also appeared diaphoretic and pale. His
symptoms began at 6:30 AM on 08/30/2024. He also developed nausea/vomiting with movement. In the ER he had a gaze palsy of his right eye. Stroke alert called and CT head showed no acute intracranial abnormality, and CTA head/neck showed no
significant vascular occlusion, aneurysm or dissection. Initial BP was 129/73, SpO2 96% on room air, pulse rate 55, respiratory rate 22 and he was afebrile to 97.5 �F. Initial Hb 14, platelet count 264, INR 1.04, serum sodium 135, glucose 246, and
initial troponin negative at <0.012. Due to concern for a left-sided ischemic CVA, he was given TNK on AM of 08/30/2024 at 0754. He was admitted to the ICU for further monitoring with automatic silk screen printer services consulted for additional
management/recommendations.
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
Impression:
#Pontine CVA s/p TNK (administered 08/30/2024 at 7:54 AM)
#Bradyarrhythmia likely due to vasovagal response requiring atropine 1 mg IVP X1 + Levophed gtt
#DM type II (uncontrolled: HbA1c: 9.9 on 08/30/2024) on OAG at home complicated by hyperglycemia
#History of hyperlipidemia
#History of BPH
Plan:
- On 08/31, patient developed bradycardia and syncope after he was told that he did indeed have a stroke. He was given atropine 1 mg IVP with rise in heart rate from the mid 30s up to the mid 60s/lower 70s. He also became hypotensive with SBP in
the 70s and was given 500 cc bolus and also started on Levophed. Levophed has been off since the afternoon of 08/31/2024 and he remains hemodynamically stable today.
- Heart rate today also improved in the mid 60s and he is not having any dizziness, chest pain, shortness of breath and is ambulating without any respiratory issues
- Check orthostatic vital signs today
- Cardiology consulted and recommendations appreciated. Outpatient SAVANNA with possible Linq per cardiology
- Brain MRI from 08/31/2024 confirmed a small ischemic acute/subacute pontine infarct
- Given right eye inability to fully adduct with abduction nystagmus of the left eye, this is consistent with internuclear ophthalmoplegia; differential also includes a partial 3rd nerve palsy vs supranuclear gaze pathology
- Continue neurochecks q4hr
- Maintain BP<130/80 + keep MAP>65
- Diet as per REPLANTING MACHINE CREWMAN
- PT/OT
- MRI brain from yesterday showed a small acute/subacute pontine infarct
- Patient now started on ASA as per neurology
- Continue with high intensity statin with goal LDL <70 (his LDL was 159 on 08/31/2024)
- Neuro on board - recs appreciated
- Maintain euglycemia with goal BG 140-180; given that his A1c is 9.9, diabetic CHIEF INSPECTOR consulted --> continue glipizide, ISS moderate assistance while hospitalized, Lantus 15 units at night + Farxiga
- Patient will need diabetic/insulin teaching prior to discharge, and should follow-up with an lean facilitator
- Maintain SpO2 >92-94%
- Replete electrolytes with K>4, Mg>2
- Up OOB as tolerated
- PT/OT before discharge
- Trend H/H and transfuse if needed to keep Hb>7g/dL; keep plt>100k
- prn nebulized bronchodilators - not currently bronchospastic
- Incentive spirometer encouraged 10x per hour for at least 4 hrs a day
- Continue proscar
- DVT ppx: LMWH
Patient is stable for either downgrade to telemetry versus discharge home. Defer discharge decision to primary hospitalist in addition to recommendations from neurology + cardiology. No additional recommendations at this time.
Depot Manager/Pulmonary service will now sign off. Thank you for allowing us to be involved in the care of this patient. Please reconsult if there are any additional questions/concerns, or if patient's respiratory status deteriorates.
Data:
Brain MRI 08/31/2024: Tiny nonhemorrhagic acute/subacute pontine infarct.
Total time spent today was 57 minutes for this encounter. Time includes reviewing laboratory test/imaging results, reviewing pertinent medical records, obtaining and reviewing medical history, performing an appropriate exam, ordering medications,
tests and procedures. Time also includes documentation of this encounter, coordinating patient care and communicating with other healthcare professionals. Total time does not include separately billed tests performed on this date of service.
Subjective Dataa
Subjective Data
Date of Service:
Date of Service: September 01, 2024
Chief Complaint: Depot Manager Follow Up
Subjective:
Patient seen and evaluated today at bedside. Yesterday he had a vasovagal episode with bradycardia, seem to start after he was told he had a stroke from neurology. He required atropine 1 mg yesterday as well as Levophed. Levophed has been off
since yesterday afternoon. Today he feels well, sitting in chair no acute distress. Heart rate 68, BP 123/76. Denies shortness of breath or chest pain.
Review of Systems
General: Other (Negative unless mentioned above)
Objective Data
Data Reviewed
Vital Signs / I&O / Oxygen:
Vital Signs
Temp Pulse Resp BP Pulse Ox
98 F 58 17 131/78 96
09/01/24 07:14 09/01/24 07:00 09/01/24 07:00 09/01/24 07:00 09/01/24 07:00
Intake and Output
08/31/24 09/01/24 09/02/24
06:59 06:59 06:59
Intake Total 730 / 730 150 / 150
Output Total 1000 / 1000 1550 / 1550
Balance -270 / -270 -1400 / -1400
SaO2 96
Physical Exam
General: Respiratory Distress (n), Comfortable, Chills (n) and Sweats (n)
HEENT: Normocephalic and Anicteric
Cardiovascular: S1-S2 and Peripheral Edema (n)
Respiratory: Clear, Wheeze (n), Crackles (n), Rhonchi (n), Non-Labored Respirations and Stridor (negative)
GI: Soft, Non Distended and Non Tender
Neurology: AO x 3, No Motor Deficits, Tremors (n), Other (Unable to fully adduct right eye; no left eye nystagmus appreciated) and Other (Intact sensation to light touch across all 4 extremities + face; normal adult services librarian strength and normal
plantar-/dorsiflexion bilaterally; normal smile with normal tongue protrusion and lateral movement; normal shoulder shrug; able to keep eyes closed against resistance; reduced peripheral vision of R-eye)
Skin: Warm, Dry, Cyanosis (negative) and Jaundice (negative)
Labs/Micro/Reports
Lab Data
09/01/24 06:07
09/01/24 06:07
--- NOTE | 2024-09-01 09:49 | W.PN.NEURO.1 ---
Today's Communication / Plan
-
low suspicion for embolic - would for outpatient ziopatch
can go home on asa 81 and zocor 40
Neuro Assessment/Plan
Assessment
right third nerve palsy, vertigo
lacunar stroke right toro on the wall of the 4th ventricle, hitting the right medial longitudinal fasciculus. 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
s/p TNK
CTA head/neck normal
Plan
low suspicion for embolic - would for outpatient ziopatch
can go home on asa 81 and zocor 40
Subjective/Objective
Subjective Data
Date of Service: September 01, 2024
double vision improving; can be horizontal, vertical, or 45 degree offset. there is now a sweet spot where the images line up
Objective Data
Vital Signs
Temp Pulse Resp BP Pulse Ox
36.6 C 58 17 131/78 96
09/01/24 07:14 09/01/24 07:00 09/01/24 07:00 09/01/24 07:00 09/01/24 07:00
Lab Results
09/01/24 06:07
09/01/24 06:07
PT 13.6 Sec (11.4-14.6) 08/31/24 04:34
INR 0.99 08/31/24 04:34
APTT 29.0 Sec (23.4-35.0) 08/31/24 04:34
Sodium 136 mmol/L (135-145) 09/01/24 06:07
Potassium 4.1 mmol/L (3.5-5.1) 09/01/24 06:07
BUN 20 mg/dl (9-20) 09/01/24 06:07
Glucose 105 mg/dl (70-99) H 09/01/24 06:07
Calcium 9.3 mg/dl (8.4-10.2) 09/01/24 06:07
Phosphorus 3.0 mg/dl (2.5-4.5) 08/31/24 11:17
LDL Cholesterol, Calc 159 mg/dl 08/31/24 04:34
Patient Allergies
No Known Allergies Allergy (Unverified 01/09/15 11:27)
Physical Exam
-
AAOx3, speech clear, language intact
VFF, PERRLA, right CN 3 palsy? TIMOTHY? - some movement right eye medially with left eye nystagmus, decreased movement vertical, no ptosis, no mydriasis, face symmetric
full strength b/l UE/LE
sensation intact
DTR normal
[2024-09-01 10:52] LABS: Glucose - Point of Care 192 mg/dl (70-99)
--- NOTE | 2024-09-01 11:25 | W.PN.HOSP.TC ---
Today's Communication/Plan
-
PT OT to clear for discharge
Orthostatic vitals
Cards to arrange 2 week monitor as OP
Assessment / Plan
Assessment / Plan
I personally performed a history and physical exam of the patient and discussed management with the resident. I reviewed the resident's note and agree with the documented findings and plan of care except for changes in my documentation
Patient was seen earlier today , late documentation
We were in the room when patient got back from MRI. Reviewed the MRI pictures with the patient regarding the stroke. Also reviewed about diabetes, the need for insulin. While discussing this with the patient and also Dr. Patel was in the room.
Patient slammed over and passed out for 5 to 6 seconds with his head onto the left side. He quickly came around, was escorted to bed and placed in Trendelenburg. Blood pressure was in 70s and heart rate went as low as 38. Wide-open IV fluids,
atropine were given. He was also started on Levophed.
CVS: S1-S2 normal
Chest: CTA B/L
Abdomen: Soft, NT / Bowel sounds present
Extremities: No edema, normal pulses
ORACLE BRM DEVELOPER: Partial 3rd nerve palsy on the right side, no pupillary asymmetry or ptosis noted
Rest of the neuroexam unremarkable
Reflexes normal
Chest x-ray hypoaeration lungs without consolidation-reviewed by me
Head and neck CTA-no vascular occlusion aneurysm or dissection
# Syncopal event- 08/31/24
(We were in the room when patient got back from MRI. Reviewed the MRI pictures with the patient regarding the stroke. Also reviewed about diabetes, the need for insulin. While discussing this with the patient and also Dr. Patel was in the room.
Patient slumped over and passed out for 5 to 6 seconds with his head onto the left side. He quickly came around, was escorted to bed and placed in Trendelenburg. Blood pressure was in 70s and heart rate went as low as 38. Wide-open IV fluids,
atropine were given. He was also started on Levophed.)
witnessed with no injury or fall
Lasted 5 to 6 seconds less than 10 seconds for sure
Possibly vasovagal
EKG without any acute changes
Troponin negative
Patient has been off of Levophed and doing fine.
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
Treated as stroke with TNK
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
Not embolic per discussion with neurology
Post TNK protocol
Antiplatelets to be started
Echo 08/30/2024-normal EF 60 to 65%, mild MR, trace AI, mild TR bubble study with no evidence of [id number]-[id number] shunt.
Continue statin
Hemoglobin A1c indicates poor diabetes control
Eye patch discussed with the patient
Per discussion with neurology patient is okay to drive
Zio patch as outpatient to be arranged per cardiology
On aspirin and statin-continue Lipitor and aspirin at discharge
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
# Diabetes with a hemoglobin A1c of 9.9 indicates poor control
Accu-Cheks and sliding scale coverage
Restart metformin
Lantus insulin started
At discharge , will use Lantus and metformin, Farxiga
Needs better diabetes control as OP
# Hyperlipidemia-switched simvastatin to atorvastatin
# Patient states that he takes finasteride for hair growth and not for prostate disease
# DVT prophylaxis-SCDs
# Full code
D/W Cardiology, Neurology and Chimney Construction Supervisor.
D/W RN
More than 30 minutes spent in discharge including
Final examination of the patient
Summarizing hospital stay
Instructions for continuing care to all relevant caregivers
Preparation of discharge records, prescriptions, and referral forms
Total time spent (in minutes): 38 min
Anticipated Discharge: Today
Subjective/Interval History
-
Date of Service: September 01, 2024
Objective Data
-
Labs:
Laboratory Results
09/01/24
06:07
WBC 5.9
Hgb 13.3
Hct 38.3 L
Plt Count 233
Sodium 136
Potassium 4.1
Chloride 105
Carbon Dioxide 20 L
BUN 20
Creatinine 0.8
Glucose 105 H
Calcium 9.3
Vital Signs:
Vital Signs
Temp Pulse Resp BP Pulse Ox
98 F 58 17 131/78 96
09/01/24 07:14 09/01/24 07:00 09/01/24 07:00 09/01/24 07:00 09/01/24 07:00
I&O
08/31/24 09/01/24 09/02/24
06:59 06:59 06:59
Intake Total 730 / 730 150 / 150
Output Total 1000 / 1000 1550 / 1550
Balance -270 / -270 -1400 / -1400
--- NOTE | 2024-09-01 11:41 | W.DS.TRANS ---
Addendum entered and electronically signed by Madeline Gibson MD 09/01/24 13:47:
Dictation- [id number]
Original Note:
DC Summary - [employer]
-
Discharge Instructions:
Discharge Diagnosis/Procedures Lacunar stroke right toro
Cranial nerve Palsy right
Diabetes, now requiring insulin
Hyperlipidemia, (hypercholesterolemia)
Vasovagal syncope
Diet Diabetic, Carb Controlled,Low Cholesterol
Activity As tolerated
Driving Restrictions Do not drive if dizzy or have difficulty seeing
Bathing Restrictions OK to Shower
Instructions:
Stand-Alone Forms: Return to Work
Changes to Home Medications: Yes
Discharge Medications:
DC Medications w/original date entered in 117go
finasteride 5 mg tablet 2.5 mg PO DAILY Urinary Issue 08/30/24
aspirin 81 mg tablet,delayed release 81 mg PO DAILY Blood clot prevention/tx #30 tabs 08/31/24
atorvastatin 40 mg tablet 40 mg PO QPM High cholesterol #30 tabs 08/31/24
metformin 500 mg tablet 500 mg PO BID Diabetes 08/31/24
dapagliflozin propanediol 10 mg tablet 10 mg PO DAILY Diabetes #30 tabs 09/01/24
glipizide 5 mg tablet 2.5 mg (1/2 x 5 mg) PO BID@0800,1700 Diabetes #60 tabs 09/01/24
insulin glargine 100 unit/mL (3 mL) subcutaneous pen (Basaglar KwikPen U-100 Insulin) 15 unit (0.15 mL) SC QPM Diabetes #15 mL 09/01/24
pen needle, diabetic 29 gauge x 1/2' #100 ea 09/01/24
Home Medication Changes
new
aspirin 81 mg tablet,delayed release 81 mg PO DAILY Blood clot prevention/tx #30 tabs 08/31/24
atorvastatin 40 mg tablet 40 mg PO QPM High cholesterol #30 tabs 08/31/24
metformin 500 mg tablet 500 mg PO BID Diabetes 08/31/24
dapagliflozin propanediol 10 mg tablet 10 mg PO DAILY Diabetes #30 tabs 09/01/24
glipizide 5 mg tablet 2.5 mg (1/2 x 5 mg) PO BID@0800,1700 Diabetes #60 tabs 09/01/24
insulin glargine 100 unit/mL (3 mL) subcutaneous pen (Basaglar KwikPen U-100 Insulin) 15 unit (0.15 mL) SC QPM Diabetes #15 mL 09/01/24
pen needle, diabetic 29 gauge x 1/2' #100 ea 09/01/24
Pending Results: No
[2024-09-01 13:32] LABS: Glucose - Point of Care 84 mg/dl (70-99)
--- NOTE | 2024-09-01 14:54 | CM ---
Addendum entered by Brent Liriano 09/01/24 16:21:
Pt's second insurance is Medicare. IMM reviewed, placed on chart, pt has a copy.
Original Note:
CM following re: discharge planning.
Reviewed pt's chart, met with pt.
Discharge order noted. Pt is aware, expressed his agreement and he stated his spouse will transport home.
PT and OT evaluations noted - no needs vs outpatient therapy recommended. Pt preferred outpatient therapy.
Please provide as script for outpatient therapy.
D/C plan: home with outpatient therapy at and family support. Spouse to transport.
[2024-09-01 16:12] LABS: Glucose - Point of Care 168 mg/dl (70-99)
--- NOTE | 2024-09-01 16:14 | PTCARENOTE ---
Patient discharge home. All peripheral lines removed. Discharge instructions provided to patient all questions answered pt best patient's satisfaction. pt aware that all scripts have been send to [facility] pharmacy electronically. transportation home will
be provided by patient's
== END 2024-09-01 16:42 | disposition home or self-care (01) | DRG 63 ==
LOC: ICU 08:33
PROVIDERS: Nurse Practitioner Primary Care; Student in an Organized Health Care Education/Training Program; ADMITTING PHYSICIAN Hospitalist; CONSULT PHYSICIAN Internal Medicine Cardiovascular Disease; CONSULT PHYSICIAN Internal Medicine Critical Care Medicine; CONSULT PHYSICIAN Psychiatry & Neurology Clinical Neurophysiology; EMERGENCY PHYSICIAN Student in an Organized Health Care Education/Training Program
PROC: 3E03317 Introduction of Other Thrombolytic into Peripheral Vein, Percutaneous Approach (ICD-10-PCS; 2024-08-30)
DX: I63.81 Other cerebral infarction due to occlusion or stenosis of small artery (principal); E11.65 Type 2 diabetes mellitus with hyperglycemia; H35.9 Unspecified retinal disorder; Z79.84 Long term (current) use of oral hypoglycemic drugs; N40.0 Benign prostatic hyperplasia without lower urinary tract symptoms; E78.00 Pure hypercholesterolemia, unspecified; H35.61 Retinal hemorrhage, right eye; H49.01 Third [oculomotor] nerve palsy, right eye; Z79.4 Long term (current) use of insulin
CPT/HCPCS: 70450; 70496; 70498; 70551; 71045; 80048; 80053; 80061; 82962; 83036; 83735; 84100; 84443; 84484; 85025; 85027; 85610; 85730; 92523; 93005; 93307; 96374; 97162; 97166; 99291; J3101; Q9967